=== PATIENT | female | born 1965 | race Caucasian/White ===

== ENCOUNTER → 2017-02-16 | Outpatient (CLI) | payer BC ==
[~2017-02-16] MED LIST: ANT25 PO; ATV5 SL; BCPILLS PO; ERYOPO OP; LEVO100T84 PO; MULT-506 PO
--- NOTE | 2017-02-17 12:32 | MAMMOGRAPHY REPORT ---
BILATERAL DIGITAL SCREENING MAMMOGRAM TOMOSYNTHESIS WITH CAD: 02/16/2017 CLINICAL HISTORY: Routine screening. Patient has no complaints. TECHNIQUE: Breast tomosynthesis in addition to standard 2D mammography was performed. COMPARISON: Comparison is made to exams dated: 02/14/2016 mammogram, 02/08/2014 mammogram, 02/03/2013 m ammogram, 01/27/2012 mammogram, 01/26/2011 mammogram, and 01/23/2010 mammogram - [facility]. BREAST COMPOSITION: There are scattered areas of fibroglandular density in both breasts. FINDINGS: The parenchymal pattern is unchanged. No developing mass, architectural distortion or clu ster of suspicious microcalcifications is seen in either breast. IMPRESSION: ACR BI-RADS CATEGORY 2: BENIGN There is no mammographic evidence of malignancy. A 1 year screening mammogram is recommended. The p atient will receive written notification of the results. Approximately 10% of breast cancers are not detected with mammography. A negative mammographic repor t should not delay biopsy if a clinically suggestive mass is present. Analia Morris M.D. ay/:02/16/2017 17:26:44 Suppression Crew Leader: Natasha JARAMILLO,R, M, [facility] letter sent: Normal 1/2 BI-RADS Code: ACR BI-RADS Category 2: Benign
== END | disposition home or self-care (01) ==
LOC: C.MAMM 07:47
PROVIDERS: ATTEND Obstetrics & Gynecology
DX: Z12.31 Encounter for screening mammogram for malignant neoplasm of breast (principal)

== ENCOUNTER → 2017-04-20 | Outpatient (CLI) | payer BC | END | disposition home or self-care (01) | LOC: C.PAPS 07:46 | PROVIDERS: ATTEND Obstetrics & Gynecology | DX: Z01.419 Encounter for gynecological examination (general) (routine) without abnormal findings (principal) ==

== ENCOUNTER → 2017-11-16 | Outpatient (CLI) | payer BC ==
--- NOTE | 2017-11-16 15:29 | DIAGNOSTIC IMAGING REPORT ---
ADDENDUM The corrected impression should read as follows: IMPRESSION: Essentially NORMAL sonographic examination of the abdomen. Incidental findings as above. Electronically signed by: Shekhar Butts M.D. 11/16/2017 3:34 PM Dictated Date/Time: 11/16/2017 3:33 PM ORIGINAL REPORT ABDOMEN COMPLETE (US) CLINICAL HISTORY: 51 years-old Female presenting with AB PAIN. TECHNIQUE: Real-time grayscale and limited color Doppler ultrasound imaging of the abdomen was performed. COMPARISON: None. FINDINGS: Pancreas: Visualized portions of the pancreatic head and body normal. Liver: Normal echogenicity and echotexture. The liver measures 13.5 cm in maximal sagittal dimension. Anechoic lobular 1.8 x 1.1 x 1.6 cm lesion noted in the posterior right hepatic lobe, likely hepatic cyst. Main portal vein patent with normal directional flow. Biliary: No intrahepatic biliary ductal dilatation. Common bile duct measures up to 4 mm in diameter. Gallbladder: No evidence of gallstones, gallbladder wall thickening, gallbladder distention, or pericholecystic fluid or inflammatory change. Spleen: Few hyperechogenicity is in the spleen likely parenchymal calcifications suggesting prior granulomatous infection. The spleen measures 10.8 cm in length. Kidneys: Normal in size and echogenicity. Right kidney measures 10.9 cm, and left kidney measures 10.5 x 4 cm. No hydronephrosis. Vasculature: Visualized portions of the IVC and abdominal aorta normal. Ascites: None. IMPRESSION: Essentially sonographic examination of the abdomen. Incidental findings as above. Electronically signed by: Shekhar Butts M.D. 11/16/2017 3:27 PM Dictated Date/Time: 11/16/2017 3:23 PM
--- NOTE | 2017-11-16 15:33 | DIAGNOSTIC IMAGING REPORT ---
PELVIC COMPLETE NON OB, TRANSVAG-FEMALE PELVIS CLINICAL HISTORY: 51 years-old Female presenting with right lower quadrant pain, postmenopausal for one year. TECHNIQUE: Real-time grayscale and color and spectral Doppler ultrasound imaging of the pelvis was performed first using a transabdominal probe and subsequently transvaginal for better characterization. COMPARISON: None. FINDINGS: Uterus: Uterine fibroids suspected, the largest measuring up to 1.7 cm. Anteverted. The uterus measures 7.9 x 4.3 x 5.5 cm. Endometrial stripe measures 4-5 mm in thickness. Endometrium demonstrates trace cystic change near the fundus. Cervix contains nabothian cysts with trace fluid in the endocervical canal. Right adnexa: Right ovary contains a dominant follicle. Right ovary measures 2.9 x 1.7 x 3.1 cm. Normal color Doppler flow and arterial and venous waveforms within the ovarian parenchyma. Left adnexa: Left ovary not visualized. Other: No free fluid. IMPRESSION: 1. The left ovary was not visualized. No right ovarian torsion. 2. Small fibroid suggested. 3. Cystic change associated with the endometrium can be seen in the setting of tamoxifen treatment or adenomyosis. Electronically signed by: Shekhar Butts M.D. 11/16/2017 3:31 PM Dictated Date/Time: 11/16/2017 3:27 PM
== END | disposition home or self-care (01) ==
LOC: C.ULTR 13:51
PROVIDERS: ATTEND Student in an Organized Health Care Education/Training Program
DX: R10.9 Unspecified abdominal pain (principal); N85.8 Other specified noninflammatory disorders of uterus

== ENCOUNTER → 2017-11-24 | Outpatient (CLI) | payer BC | END | disposition home or self-care (01) | LOC: C.PATHSPEC 14:00 | PROVIDERS: ATTEND Obstetrics & Gynecology | DX: N85.8 Other specified noninflammatory disorders of uterus (principal); R93.8 Abnormal findings on diagnostic imaging of other specified body structures ==

== ENCOUNTER → 2018-01-07 | Outpatient (CLI) | payer OTHER ==
[~2018-01-07] MED LIST changes: +CPR500 PO; +HYDR200T5 PO; +LEVO112T4 PO; +PRED10TA PO
--- NOTE | 2018-01-07 14:37 | DIAGNOSTIC IMAGING REPORT ---
CHEST 2 VIEWS ROUTINE HISTORY: 52 years-old Female FLU LIKE SYMPTOMS acute flu like symptoms. COMPARISON: None available TECHNIQUE: PA and lateral views of the chest FINDINGS: Cardiomediastinal and hilar silhouettes are within normal limits. There is no pneumothorax, pleural effusion, focal airspace consolidation or overt pulmonary edema. The bones of the chest appear grossly intact. IMPRESSION: No acute process. The above report was generated using voice recognition software. It may contain grammatical, syntax or spelling errors. Electronically signed by: Nicanor Berry M.D. 01/07/2018 2:36 PM Dictated Date/Time: 01/07/2018 2:35 PM
== END | disposition home or self-care (01) ==
LOC: C.RAD1850 14:25
PROVIDERS: ATTEND Family Medicine
DX: R68.89 Other general symptoms and signs (principal)

== ENCOUNTER 2018-01-08 17:48 | Inpatient (IN) | payer OTHER ==
[~2018-01-08] VITALS: Ht 165.1 cm; Wt 68.0 kg
[~2018-01-08 17:48] MED LIST changes: -CPR500 PO; -HYDR200T5 PO; -LEVO112T4 PO; -PRED10TA PO
[2018-01-08] MEDS ORDERED: ACETAMINOPHEN 500 MG TAB PO STA (18:08)
[2018-01-08] MEDS ORDERED: SODIUM CHLORIDE 0.9% 1000ML 1,000 ML IV ONE (18:08)
[2018-01-08] MEDS ORDERED: CEFEPIME IV 2,000 MG in DEXTROSE 5% 100ML 100 ML IV ONE (18:15)
[2018-01-08] MEDS ORDERED: OPTIRAY 320 IV PRN (18:15)
[2018-01-08] MEDS ORDERED: LEVO112T4 PO (18:51)
[2018-01-08] MEDS ORDERED: HYDR200T5 PO (18:51)
--- NOTE | 2018-01-08 18:54 | EMERGENCY ROOM VISIT NOTE ---
History Report prepared by Nettie: Trevin Sanchez Under the Supervision of: Dr. Boby Jones M.D. First contact with patient: 18:01 Chief Complaint: UNABLE TO VOID Stated Complaint: CONSTIPATION,NOT ABLE TO URINATE Nursing Triage Summary: pt to the ED with c/o 2 wks of flu like sickness with n/v/d but today she cannot void unless she forces it per pt and given herself hemmroids trying to void History of Present Illness The patient is a 52 year old female who presents to the Emergency Room with complaints of a constant inability to void that started yesterday. She rates her discomfort as a 6/10 in severity. The patient states that she started to experience diarrhea two weeks ago for three days. She reports that following the diarrhea, she started to experience vomiting, muscle aches, and fever. The patient states that she was checking her temperature and taking Tylenol to lower her temperature, but she reports that her fever would return. She states that she started to feel as if her symptoms were resolving a week ago, but a day later her symptoms returned. The patient reports that she went to visit her physician five days ago when he diagnosed her with influenza. She states that her physician told her to go home and push fluids, which she reports she has been doing. The patient states that her symptoms continued throughout the week. She reports that her diarrhea resolved, and she states she has not had a bowel movement in a week. She reports that her last bowel movement was normal, but states she could only defecate a small amount. The patient states that she still has been vomiting "foam like" fluids. The patient states that she has been experiencing nausea, which has been causing her not to eat frequently. She reports that she has been able to eat small foods, such as toast. The patient reports that she has also been experiencing a cough. The patient states that yesterday, she started to experience trouble voiding, which she describes as having to push in order to urinate. She states that she went to a different physician yesterday who diagnosed her with a sinus infection. The patient states that the physician gave her a Z Pack and did blood work and an xray. She reports that the results showed normal thyroid and kidney function, but showed anemia and high liver enzymes. The patient reports that her chest x-ray was normal as well. She reports that her inability to void has continued today. The patient states that she has been pushing to urinate, which has caused her to develop hemorrhoids. She states that there is no pain upon urination, but she states that there is mild discomfort and it feels as if her "bladder is unable to empty". The patient states that she has still been taking Tylenol for her fever with her last dose early this afternoon. She denies a rash, vaginal discharge, previous similar symptoms, abdominal surgeries, and a history of diverticulitis. The patient reports a history of [place], Lupus, and a thyroidectomy. She states that she is currently taking Plaquenil for her history of Lupus. Source of History: patient Onset: yesterday Position: other (global) Symptom Intensity: 05/08 Quality: other ("needing to push to urinate") Timing: constant Modifying Factors (Relieving): other (Z Pack) Associated Symptoms: + fevers, + cough, + nausea, + vomiting, + diarrhea ( resolved) Review of Systems See HPI for pertinent positives & negatives. A total of 10 systems reviewed and were otherwise negative. Past Medical & Surgical Medical Problems: (1) Lupus (2) Mononucleosis Surgical Problems: (1) History of thyroidectomy Family History Patient reports no known family medical history. Social History Marital Status: Housing Status: lives with family Occupation Status: employed Current/Historical Medications Scheduled Hydroxychloroquine Sulfate (Plaquenil), 200 MG PO BID Levothyroxine Sodium (Levothyroxine Sodium), 112 MCG PO DAILY Allergies Coded Allergies: Penicillins (Verified Allergy, Intermediate, RASH, 01/03/10) Physical Exam Vital Signs Date Time Temp Pulse Resp B/P (MAP) Pulse Ox O2 Delivery O2 Flow Rate FiO2 01/08/18 22:20 70 16 122/78 98 Room Air 01/08/18 18:32 99 Room Air 01/08/18 17:51 39.4 96 18 124/81 95 Room Air Physical Exam GENERAL: Patient is in no acute distress. HEENT: No acute trauma, normocephalic atraumatic, mucous membranes dry, no nasal congestion, no scleral icterus. NECK: No stridor, no adenopathy, no meningismus, trachea is midline. LUNGS: Clear to auscultation bilaterally, no wheeze, no rhonchi, breath sounds equal. HEART: Without murmurs gallops or rubs, regular rate and rhythm. ABDOMEN: Lower pelvis and abdomen pain bilaterally with palpation, some mild distention of the abdomen noted, bowel sounds positive, no hernias, no peritonitis. EXTREMITIES: No cyanosis or edema, full range of motion of all the joints without pain or difficulty, no signs for acute trauma. NEUROLOGIC: Oriented x 3, no acute motor or sensory deficits, no focal weakness. SKIN: No rash, no jaundice, no diaphoresis. Medical Decision & Procedures ER Provider Diagnostic Interpretation: Radiology results as stated below per my review and radiologist interpretation: CHEST 2 VIEWS ROUTINE HISTORY: 52 years-old Female FLU LIKE SYMPTOMS acute flu like symptoms. COMPARISON: None available TECHNIQUE: PA and lateral views of the chest FINDINGS: Cardiomediastinal and hilar silhouettes are within normal limits. There is no pneumothorax, pleural effusion, focal airspace consolidation or overt pulmonary edema. The bones of the chest appear grossly intact. IMPRESSION: No acute process. The above report was generated using voice recognition software. It may contain grammatical, syntax or spelling errors. Electronically signed by: Nicanor Berry M.D. 01/07/2018 2:36 PM Dictated Date/Time: 01/07/2018 2:35 PM ABD/PELVIS IV CONTRAST ONLY CLINICAL HISTORY: 52 years-old Female presenting with ABD PAIN, POSS divertic, IV CONTRAST ONLY. TECHNIQUE: Multidetector CT of the abdomen and pelvis was performed after the administration of intravenous contrast. IV contrast: 94 mL of Optiray 320. A dose lowering technique was used consistent with the principles of ALARA (as low as reasonably achievable). COMPARISON: None. CT DOSE (mGy.cm): The estimated cumulative dose is 260.69 mGy.cm. FINDINGS: [employer] Specialist topogram: Unremarkable. Lung bases: Minimal basilar opacities, likely atelectasis. Normal heart size. No pericardial or pleural effusion. Liver: Normal morphology. No liver lesion. Patent hepatic vasculature. Biliary: No intrahepatic or extrahepatic biliary ductal dilatation. Mild gallbladder wall thickening. The gallbladder is not significantly distended. No pericholecystic inflammatory change. Pancreas: Normal. Spleen: Numerous splenic parenchymal calcification suggest prior granulomatous infection. Adrenal glands: Normal. Kidneys and ureters: Normal. No hydronephrosis. Bladder: Decompressed with a Kidd catheter. Pelvic organs: Uterus and ovaries normal. Bowel: Normal. No bowel obstruction. Peritoneal cavity: No free fluid or intraperitoneal gas. Lymph nodes: No enlarged lymph nodes in the abdomen or pelvis. Vasculature: Aorta and IVC patent and normal in caliber. Abdominal wall: Normal. Musculoskeletal: Normal. IMPRESSION: 1. Gallbladder wall thickening, nonspecific. There is clinical concern for cholecystitis, ultrasound should be obtained. 2. Bladder decompressed with a Kidd catheter. Electronically signed by: Shekhar Butts M.D. 01/08/2018 7:36 PM Dictated Date/Time: 01/08/2018 7:30 PM GALLBLADDER-ABD LIMITED CLINICAL HISTORY: 52 years-old Female presenting with fever, abnormal gb on ct. TECHNIQUE: Real-time grayscale and limited color Doppler ultrasound imaging of the abdomen limited to the right upper quadrant was performed. COMPARISON: CT performed earlier the same day. FINDINGS: Pancreas: Visualized portions of the pancreatic head and body normal. Liver: Normal echogenicity and echotexture. Relative hyperechogenicity in the left hepatic lobe may indicate heterogeneous fatty deposition. The liver measures 14.2 cm in maximal sagittal dimension. No sonographic evidence of hepatic mass. Main portal vein patent with normal directional flow. Biliary: No intrahepatic biliary ductal dilatation. Common bile duct measures up to 5 mm in diameter. Gallbladder: Minimal sludge may be present. No evidence of gallstones. Mild gallbladder wall thickening, nonspecific. Sonographic Thomason's sign negative. Right kidney: Normal in appearance. No hydronephrosis. Ascites: None. IMPRESSION: Minimal gallbladder sludge. No cholelithiasis. Nonspecific mild gallbladder wall thickening. Findings are not suggestive of acute cholecystitis. If there is clinical concern for this diagnosis, nuclear medicine HIDA scan could be obtained. Electronically signed by: Shekhar Butts M.D. 01/08/2018 10:29 PM Dictated Date/Time: 01/08/2018 10:28 PM Laboratory Results 01/08/18 18:22 Red Blood Count 4.03, Mean Corpuscular Volume 84.6, Mean Corpuscular Hemoglobin 29.5, Mean Corpuscular Hemoglobin Concent 34.9, Mean Platelet Volume 10.2, Neutrophils (%) (Auto) 80.5, Lymphocytes (%) (Auto) 13.0, Monocytes (%) (Auto) 6.1, Eosinophils (%) (Auto) 0.0, Basophils (%) (Auto) 0.0, Neutrophils # (Auto) 2.23, Lymphocytes # (Auto) 0.36, Monocytes # (Auto) 0.17, Eosinophils # (Auto) 0.00, Basophils # (Auto) 0.00 01/08/18 18:22 Test 01/08/18 18:22 01/08/18 18:30 01/08/18 18:51 01/08/18 19:02 White Blood Count 2.77 K/uL (4.8-10.8) Red Blood Count 4.03 M/uL (4.2-5.4) Hemoglobin 11.9 g/dL (12.0-16.0) Hematocrit 34.1 % (37-47) Mean Corpuscular Volume 84.6 fL (80-100) Mean Corpuscular Hemoglobin 29.5 pg (25-34) Mean Corpuscular Hemoglobin Concent 34.9 g/dl (32-36) Platelet Count 138 K/uL (130-400) Mean Platelet Volume 10.2 fL (7.4-10.4) Neutrophils (%) (Auto) 80.5 % Lymphocytes (%) (Auto) 13.0 % Monocytes (%) (Auto) 6.1 % Eosinophils (%) (Auto) 0.0 % Basophils (%) (Auto) 0.0 % Neutrophils # (Auto) 2.23 K/uL (1.4-6.5) Lymphocytes # (Auto) 0.36 K/uL (1.2-3.4) Monocytes # (Auto) 0.17 K/uL (0.11-0.59) Eosinophils # (Auto) 0.00 K/uL (0-0.5) Basophils # (Auto) 0.00 K/uL (0-0.2) RDW Standard Deviation 36.0 fL (36.4-46.3) RDW Coefficient of Variation 11.6 % (11.5-14.5) Immature Granulocyte % (Auto) 0.4 % Immature Granulocyte # (Auto) 0.01 K/uL (0.00-0.02) Red Blood Cell Morphology Unremarkable Prothrombin Time 11.2 SECONDS (9.0-12.0) Prothromb Time International Ratio 1.1 (0.9-1.1) Activated Partial Thromboplast Time 28.1 SECONDS (21.0-31.0) Partial Thromboplastin Ratio 1.1 Anion Gap 8.0 mmol/L (3-11) Est Creatinine Clear Calc Drug Dose 84.4 ml/min Estimated GFR () 114.3 Estimated GFR (Non- 98.6 BUN/Creatinine Ratio 14.7 (10-20) Calcium Level 8.3 mg/dl (8.5-10.1) Magnesium Level 2.1 mg/dl (1.8-2.4) Total Bilirubin 0.5 mg/dl (0.2-1) Direct Bilirubin 0.1 mg/dl (0-0.2) Aspartate Amino Transf (AST/SGOT) 38 U/L (15-37) Alanine Aminotransferase (ALT/SGPT) 48 U/L (12-78) Alkaline Phosphatase 51 U/L (45-117) Total Creatine Kinase 57 U/L (26-192) Total Protein 7.7 gm/dl (6.4-8.2) Albumin 3.4 gm/dl (3.4-5.0) Monoscreen NEG (NEG) Influenza Type A (RT-PCR) Neg for Influ A (NEG) Influenza Type B (RT-PCR) Neg for Influ B (NEG) Bedside Lactic Acid Venous 0.78 mmol/L (0.90-1.70) Urine Color YELLOW Urine Appearance CLEAR (CLEAR) Urine pH 6.0 (4.5-7.5) Urine Specific Emmett 1.014 (1.000-1.030) Urine Protein NEG (NEG) Urine Glucose (UA) NEG (NEG) Urine Ketones NEG (NEG) Urine Occult Blood NEG (NEG) Urine Nitrite NEG (NEG) Urine Bilirubin NEG (NEG) Urine Urobilinogen NEG (NEG) Urine Leukocyte Esterase NEG (NEG) Urine WBC (Auto) 1-5 /hpf (0-5) Urine RBC (Auto) 0-4 /hpf (0-4) Urine Hyaline Casts (Auto) 1-5 /lpf (0-5) Urine Epithelial Cells (Auto) 5-10 /lpf (0-5) Urine Bacteria (Auto) NEG (NEG) Laboratory results reviewed by me. Medications Administered Medications (Trade) Dose Ordered Sig/Roland Route Start Time Stop Time Status Last Admin Dose Admin Sodium Chloride 1,000 ml @ 999 mls/hr Q1H1M ONCE IV 01/08/18 18:08 01/08/18 19:08 DC 01/08/18 18:23 999 MLS/HR Cefepime HCl 2000 mg/Dextrose 112.5 ml @ 225 mls/hr NOW ONCE IV 01/08/18 18:15 01/08/18 18:44 DC 01/08/18 18:23 225 MLS/HR Acetaminophen (Tylenol Tab) 1,000 mg NOW STAT PO 01/08/18 18:08 01/08/18 18:13 DC 01/08/18 18:23 1,000 MG Sodium Chloride 500 ml @ 999 mls/hr Q31M STAT IV 01/08/18 21:03 01/08/18 21:33 DC 01/08/18 21:03 999 MLS/HR ED Course 1805: The patient was evaluated in room C02B. A complete history and physical exam was performed. 1807: Ordered Tylenol Tab 1000 mg PO, Sodium Chloride 1000 ml @ 999 mls/hr IV. 1814: Ordered Cefepime HCl 2000 mg /Dextrose 112.5 ml @ 225 mls/hr. 1947: I reevaluated the patient and updated her on her results. I informed her of having an ultrasound done. 2102: Ordered Sodium Chloride 500 ml @ 999 mls/hr IV. 2235: I reevaluated the patient and updated her on her results. I discussed the treatment plan, which she understands and agrees to. The patient will be further evaluated. 7: I discussed the case with Dr. Haney, [facility] Hospitalist. He understands the patients condition and agrees to accept the patient. The patient will be further evaluated. Medical Decision The patient is a 52 year old female who presents to the Emergency Room with complaints of a constant inability to void that started yesterday. Differential diagnoses considered include urinary retention, UTI ,diverticulitis , colitis, abscess, dehydration, viral illness, urinary obstruction, [place], influenza. There is no leukocytosis, in fact the white count is somewhat low. No concerning anemia, no thrombocytopenia. Renal panel testing shows a low sodium , likely consistent with dehydration. No kidney failure. Lactic acid level is not elevated making sepsis less likely. There was a very mild elevation to the AST, no bilirubin elevation. The total CK was not elevated. Urinalysis does not show infection. Blood cultures are pending. [place] and influenza testing was negative. Abdominal and pelvis CT does not show diverticulitis or bowel obstruction. The gallbladder was thickened. Gallbladder ultrasound shows sludge and gallbladder wall thickening, no gallstones. Chest film from yesterday did not show any evidence for pneumonia or pneumothorax. The patient received IV hydration with saline. She was given oral Tylenol. She received IV cefepime as antibiotic coverage. A Kidd catheter was placed and drained around 1000 cc of urine, she felt markedly better after the Kidd was placed. The patient has been sick for 2 weeks. She is now retaining urine, the cause for this is unclear. She has a thickened gallbladder wall and certainly, acute cholecystitis is a concern especially with her high fever. I do think a hospital stay for further care and workup is warranted. I spoke with the patient and case management. The on-call hospitalist was consulted. Medication Reconcilliation Current Medication List: was personally reviewed by me Blood Pressure Screening Patient's blood pressure: Normal blood pressure Consults Time Called: [id number] Consulting Physician: Dr. Haney [facility] Hospitalist Returned Call: [phone] I discussed the case with Dr. Haney [facility] Hospitalist. He understands the patients condition and agrees to accept the patient. The patient will be further evaluated. Impression Primary Impression: Fever Additional Impressions: Acute cholecystitis Dehydration Urinary retention Scribe Attestation The scribe's documentation has been prepared under my direction and personally reviewed by me in its entirety. I confirm that the note above accurately reflects all work, treatment, procedures, and medical decision making performed by me. Departure Information Dispostion Being Evaluated By Hospitalist Referrals Ashanti Graham D.O. (PCP) Patient Instructions [facility] Problem Qualifiers
[2018-01-08 18:55] LABS: HEMATOCRIT 34.1 % (37-47); HEMOGLOBIN 11.9 g/dL (12.0-16.0); MEAN CELL VOLUME 84.6 fL (80-100); MEAN CORPUSCULAR HEMOGLOBIN 29.5 pg (25-34); MEAN CORPUSCULAR HGB CONC 34.9 g/dl (32-36); MEAN PLATELET VOLUME 10.2 fL (7.4-10.4); PLATELET COUNT 138 K/uL (130-400); RED CELL DISTRIBUTION WIDTH CV 11.6 % (11.5-14.5); WHITE BLOOD COUNT 2.77 K/uL (4.8-10.8)
[2018-01-08 19:11] LABS: ALBUMIN 3.4 gm/dl (3.4-5.0); CALCIUM 8.3 mg/dl (8.5-10.1); CREATININE 0.71 mg/dl (0.60-1.20); POTASSIUM 3.7 mmol/L (3.5-5.1)
[2018-01-08 19:14] LABS: IG# 0.01 K/uL (0.00-0.02); INR 1.1 (0.9-1.1); LYMPH ABS # 0.36 K/uL (1.2-3.4); MONO % 6.1 %; MONO ABS # 0.17 K/uL (0.11-0.59); NEUT % 80.5 %; NEUT ABS # 2.23 K/uL (1.4-6.5); PTT PATIENT 28.1 SECONDS (21.0-31.0); TOTAL PROTEIN 7.7 gm/dl (6.4-8.2)
[2018-01-08 19:32] LABS: INFLUENZA A PCR Neg for Influ A (NEG); INFLUENZA B PCR Neg for Influ B (NEG)
--- NOTE | 2018-01-08 19:37 | DIAGNOSTIC IMAGING REPORT ---
ABD/PELVIS IV CONTRAST ONLY CLINICAL HISTORY: 52 years-old Female presenting with ABD PAIN, POSS divertic, IV CONTRAST ONLY. TECHNIQUE: Multidetector CT of the abdomen and pelvis was performed after the administration of intravenous contrast. IV contrast: 94 mL of Optiray 320. A dose lowering technique was used consistent with the principles of ALARA (as low as reasonably achievable). COMPARISON: None. CT DOSE (mGy.cm): The estimated cumulative dose is 260.69 mGy.cm. FINDINGS: D[employer]er topogram: Unremarkable. Lung bases: Minimal basilar opacities, likely atelectasis. Normal heart size. No pericardial or pleural effusion. Liver: Normal morphology. No liver lesion. Patent hepatic vasculature. Biliary: No intrahepatic or extrahepatic biliary ductal dilatation. Mild gallbladder wall thickening. The gallbladder is not significantly distended. No pericholecystic inflammatory change. Pancreas: Normal. Spleen: Numerous splenic parenchymal calcification suggest prior granulomatous infection. Adrenal glands: Normal. Kidneys and ureters: Normal. No hydronephrosis. Bladder: Decompressed with a Kidd catheter. Pelvic organs: Uterus and ovaries normal. Bowel: Normal. No bowel obstruction. Peritoneal cavity: No free fluid or intraperitoneal gas. Lymph nodes: No enlarged lymph nodes in the abdomen or pelvis. Vasculature: Aorta and IVC patent and normal in caliber. Abdominal wall: Normal. Musculoskeletal: Normal. IMPRESSION: 1. Gallbladder wall thickening, nonspecific. There is clinical concern for cholecystitis, ultrasound should be obtained. 2. Bladder decompressed with a Kidd catheter. Electronically signed by: Shekhar Butts M.D. 01/08/2018 7:36 PM Dictated Date/Time: 01/08/2018 7:30 PM
[2018-01-08] MEDS ORDERED: SODIUM CHLORIDE 0.9% 500ML 500 ML IV STA (21:03)
--- NOTE | 2018-01-08 22:30 | DIAGNOSTIC IMAGING REPORT ---
GALLBLADDER-ABD LIMITED CLINICAL HISTORY: 52 years-old Female presenting with fever, abnormal gb on ct. TECHNIQUE: Real-time grayscale and limited color Doppler ultrasound imaging of the abdomen limited to the right upper quadrant was performed. COMPARISON: CT performed earlier the same day. FINDINGS: Pancreas: Visualized portions of the pancreatic head and body normal. Liver: Normal echogenicity and echotexture. Relative hyperechogenicity in the left hepatic lobe may indicate heterogeneous fatty deposition. The liver measures 14.2 cm in maximal sagittal dimension. No sonographic evidence of hepatic mass. Main portal vein patent with normal directional flow. Biliary: No intrahepatic biliary ductal dilatation. Common bile duct measures up to 5 mm in diameter. Gallbladder: Minimal sludge may be present. No evidence of gallstones. Mild gallbladder wall thickening, nonspecific. Sonographic Thomason's sign negative. Right kidney: Normal in appearance. No hydronephrosis. Ascites: None. IMPRESSION: Minimal gallbladder sludge. No cholelithiasis. Nonspecific mild gallbladder wall thickening. Findings are not suggestive of acute cholecystitis. If there is clinical concern for this diagnosis, nuclear medicine HIDA scan could be obtained. Electronically signed by: Shekhar Butts M.D. 01/08/2018 10:29 PM Dictated Date/Time: 01/08/2018 10:28 PM
[2018-01-09] MEDS ORDERED: MAGNESIUM HYDROXIDE SUSP 30 ML UDC PO PRN (01:15)
[2018-01-09] MEDS ORDERED: ALUMINUM/MAGNESIUM/SIMETH (MAALOX MAX) 30 ML UDC PO PRN (01:15)
[2018-01-09] MEDS ORDERED: POLYETHYLENE (MIRALAX) 17 GM PACK PO PRN (01:15)
[2018-01-09] MEDS ORDERED: ONDANSETRON INJ 2 MG/ML 2 ML VIAL IV PRN (01:15)
[2018-01-09] MEDS ORDERED: MoRPHine SULFATE 2 MG/ML CARP IV PRN (01:15)
--- NOTE | 2018-01-09 01:32 | History and Physical ---
History & Physical Date & Time of Service: Jan 09, 2018 at 01:13 Chief Complaint: Constipation,Not Able To Urinate Primary Care Physician: Ashanti Graham D.O. History of Present Illness Source: patient, hospital records Patient is a 52 year old female with a PMH of lupus and hypothyroidism who presented to the ED as she has been unable to urinate. Her difficulty with urination started yesterday where she said she had to bare down very hard to urinate that she even gave herself a haemmorhoid. Today she was unable to urinate at all and therefore she came to the ED. She says she feels that there is something blocking her urethra. She has never had this happen to her before. She denies any dysuria, hematuria, or new medications. She denies any vaginal bleeding. She also notes that for the past two weeks she has had fevers, vomiting and chills with a decreased appetite. She has measured her temperature at home and it has been 100-102 and she has taken tylenol to subside this. She did have diarrhea 10 days ago but this has now subsided. She denies any abdominal pain, dysuria,. Past Medical/Surgical History Surgical Problems: (1) History of thyroidectomy Status: Resolved Family History Patient reports no known family medical history. Social History Smoking Status: Never Smoker Alcohol Use: none Drug Use: none Marital Status: Housing status: lives with family Occupational Status: employed Immunizations History of Influenza Vaccine: Yes Influenza Vaccine Date: Oct 15, 2005 History of Tetanus Vaccine?: unsure of date History of Pneumococcal: No History of Hepatitis B Vaccine: No Multi-Drug Resistant Organisms History of MDRO: No Allergies Coded Allergies: Penicillins (Verified Allergy, Intermediate, RASH, 01/03/10) Home Medications Scheduled Hydroxychloroquine Sulfate (Plaquenil), 200 MG PO BID Levothyroxine Sodium (Levothyroxine Sodium), 112 MCG PO DAILY Review of Systems Constitutional: + fever, + chills Respiratory: No cough, No sputum, No shortness of breath, No hemoptysis Cardiovascular: No chest pain, No edema, No palpitations Abdomen: + nausea, + vomiting, + diarrhea, + constipation, No pain, No GI bleeding Genitourinary - Female: No dysuria, No urinary frequency, No urinary retention , No hematuria, No vaginal discharge, No vaginal itching Neurologic: No memory loss, No numbness/tingling Endocrine: + fatigue Hematologic / Lymphatic: No abnormal bleeding/bruising Integumentary: No rash, No itch, No new/changing skin lesions Physical Exam Vital Signs Date Time Temp Pulse Resp B/P (MAP) Pulse Ox O2 Delivery O2 Flow Rate FiO2 01/09/18 00:20 60 16 123/76 99 Room Air 01/08/18 22:20 70 16 122/78 98 Room Air 01/08/18 18:32 99 Room Air 01/08/18 17:51 39.4 96 18 124/81 95 Room Air General Appearance: WD/WN, no apparent distress Head: normocephalic, atraumatic ENT: hearing grossly normal, pharynx normal Neck: supple, no JVD, trachea midline Respiratory/Chest: lungs clear, no respiratory distress, no accessory muscle use Cardiovascular: regular rate, rhythm, no murmur, normal peripheral pulses Abdomen/GI: normal bowel sounds, non tender, soft Back: normal inspection, no CVA tenderness, normal range of motion Extremities/Musculoskelatal: no calf tenderness, no pedal edema, non-tender Neurologic/Psych: alert, normal mood/affect, oriented x 3 Skin: normal color, warm/dry, no rash Diagnostics Laboratory Results Results Past 24 Hours Test 01/08/18 18:22 01/08/18 18:30 01/08/18 18:51 01/08/18 19:02 Range/Units White Blood Count 2.77 4.8-10.8 K/uL Red Blood Count 4.03 4.2-5.4 M/uL Hemoglobin 11.9 12.0-16.0 g/dL Hematocrit 34.1 37-47 % Mean Corpuscular Volume 84.6 80-100 fL Mean Corpuscular Hemoglobin 29.5 25-34 pg Mean Corpuscular Hemoglobin Concent 34.9 32-36 g/dl Platelet Count 138 130-400 K/uL Mean Platelet Volume 10.2 7.4-10.4 fL Neutrophils (%) (Auto) 80.5 % Lymphocytes (%) (Auto) 13.0 % Monocytes (%) (Auto) 6.1 % Eosinophils (%) (Auto) 0.0 % Basophils (%) (Auto) 0.0 % Neutrophils # (Auto) 2.23 1.4-6.5 K/uL Lymphocytes # (Auto) 0.36 1.2-3.4 K/uL Monocytes # (Auto) 0.17 0.11-0.59 K/uL Eosinophils # (Auto) 0.00 0-0.5 K/uL Basophils # (Auto) 0.00 0-0.2 K/uL RDW Standard Deviation 36.0 36.4-46.3 fL RDW Coefficient of Variation 11.6 11.5-14.5 % Immature Granulocyte % (Auto) 0.4 % Immature Granulocyte # (Auto) 0.01 0.00-0.02 K/uL Red Blood Cell Morphology Unremarkable Prothrombin Time 11.2 9.0-12.0 SECONDS Prothromb Time International Ratio 1.1 0.9-1.1 Activated Partial Thromboplast Time 28.1 21.0-31.0 SECONDS Partial Thromboplastin Ratio 1.1 Sodium Level 129 136-145 mmol/L Potassium Level 3.7 3.5-5.1 mmol/L Chloride Level 97 98-107 mmol/L Carbon Dioxide Level 24 21-32 mmol/L Anion Gap 8.0 3-11 mmol/L Blood Urea Nitrogen 11 7-18 mg/dl Creatinine 0.71 0.60-1.20 mg/dl Est Creatinine Clear Calc Drug Dose 84.4 ml/min Estimated GFR () 114.3 Estimated GFR (Non- 98.6 BUN/Creatinine Ratio 14.7 10-20 Random Glucose 93 70-99 mg/dl Calcium Level 8.3 8.5-10.1 mg/dl Magnesium Level 2.1 1.8-2.4 mg/dl Total Bilirubin 0.5 0.2-1 mg/dl Direct Bilirubin 0.1 0-0.2 mg/dl Aspartate Amino Transf (AST/SGOT) 38 15-37 U/L Alanine Aminotransferase (ALT/SGPT) 48 12-78 U/L Alkaline Phosphatase 51 45-117 U/L Total Creatine Kinase 57 26-192 U/L Total Protein 7.7 6.4-8.2 gm/dl Albumin 3.4 3.4-5.0 gm/dl Monoscreen NEG NEG Influenza Type A (RT-PCR) Neg for Influ A NEG Influenza Type B (RT-PCR) Neg for Influ B NEG Bedside Lactic Acid Venous 0.78 0.90-1.70 mmol/L Urine Color YELLOW Urine Appearance CLEAR CLEAR Urine pH 6.0 4.5-7.5 Urine Specific [place] 1.014 1.000-1.030 Urine Protein NEG NEG Urine Glucose (UA) NEG NEG Urine Ketones NEG NEG Urine Occult Blood NEG NEG Urine Nitrite NEG NEG Urine Bilirubin NEG NEG Urine Urobilinogen NEG NEG Urine Leukocyte Esterase NEG NEG Urine WBC (Auto) 1-5 0-5 /hpf Urine RBC (Auto) 0-4 0-4 /hpf Urine Hyaline Casts (Auto) 1-5 0-5 /lpf Urine Epithelial Cells (Auto) 5-10 0-5 /lpf Urine Bacteria (Auto) NEG NEG Microbiology Results 01/08/18 Blood Culture, Received Pending 01/08/18 Blood Culture, Received Pending Diagnostic Radiology Gallbladder US Minimal gallbladder sludge. No cholelithiasis. Nonspecific mild gallbladder wall thickening. Findings are not suggestive of acute cholecystitis. If there is clinical concern for this diagnosis, nuclear medicine HIDA scan could be obtained. Abdomen CT 1. Gallbladder wall thickening, nonspecific. There is clinical concern for cholecystitis, ultrasound should be obtained. 2. Bladder decompressed with a Kidd catheter. Impression Assessment and Plan 52 year old female with a PMH of lupus and hypothyroidism presented to [facility] with difficulty urinating and fevers/chills and vomiting Difficulty urination - Kidd placed - bladder scan ordered - no urinary symptoms - no offending medications - possibly secondary to dehydration therefore voiding trial in the AM and if still unable to urinate the should consider urology consult Abnormal gallbladder on imaging - Fevers, chills, vomiting and decrease appetite over the past 2 weeks - IVF with 125mls NS - Ceftriaxone 2gram q24 - Consult general surgery - HIDA w/ EF - NPO except meds Hx of lupus - continue hydroxychloroquine Hx of hypothyroidism secondary to thyroidectomy - continue levo DVT prophylaxis - chemical prophylaxis held as may need surgery - SCD FULL CODE Attending addendum: I have physically seen this patient, have supervised the medical residents activities, and agree with the H&P unless as otherwise noted. Assessment and Plan: Urinary retention-- When Kidd was placed in the ED, there was 1000 cc of urine. We will discontinue Kidd upon admission and order bladder scans with as needed straight cathing. Follow urine culture and sensitivity. No obvious explanation at this time. Although may be secondary to concurrent GI problem. Abnormal gallbladder imaging/diarrhea/fevers, chills and vomiting-- N.p.o. except essential medications HIDA scan with gallbladder ejection fraction Empiric ceftriaxone IV IV fluids Lupus-- Continue hydroxychloroquine Level of Care Med/Surg Advanced Directives Existing Advance Directive: No Existing Living Will: No Existing Power of Vp Cardiovascular: No Resuscitation Status FULL RESUSCITATION VTE Prophylaxis VTE Risk Assessment Done? Y/N: Yes Risk Level: Moderate Given or contraindicated: SCD's Social Service Consult None Apply
[2018-01-09 02:05] VITALS: BP 145/86; PULSE 68; TEMP 37.1; O2SAT 98; Ht 165.1 cm; Wt 68.0 kg
[2018-01-09] MEDS ORDERED: IV FLUIDS COMPLETED PRN (02:30)
[2018-01-09] MEDS: SODIUM CHLORIDE 0.9% 1000ML 1,000 ML IV SCH ×3 (02:56→20:30)
[2018-01-09] MEDS: CEFTRIAXONE SOD INJ 2,000 MG in DEXTROSE 5% 50ML 50 ML IV SCH (02:57)
[2018-01-09] MEDS: LEVOTHYROXINE 112 MCG TAB PO SCH (05:45)
[2018-01-09 07:38] VITALS: BP 145/78; PULSE 78; TEMP 37.6; O2SAT 98
[2018-01-09 07:45] VITALS: O2SAT 98
[2018-01-09 08:49] LABS: HEMATOCRIT 31.9 % (37-47); HEMOGLOBIN 10.9 g/dL (12.0-16.0); LYMPH % 22.6 %; LYMPH ABS # 0.38 K/uL (1.2-3.4); MEAN CELL VOLUME 85.3 fL (80-100); MEAN CORPUSCULAR HEMOGLOBIN 29.1 pg (25-34); MEAN CORPUSCULAR HGB CONC 34.2 g/dl (32-36); MEAN PLATELET VOLUME 9.8 fL (7.4-10.4); MONO % 8.3 %; MONO ABS # 0.14 K/uL (0.11-0.59); NEUT % 69.1 %; NEUT ABS # 1.16 K/uL (1.4-6.5); PLATELET COUNT 122 K/uL (130-400); RED CELL DISTRIBUTION WIDTH CV 11.8 % (11.5-14.5); RED CELL DISTRIBUTION WIDTH SD 37.1 fL (36.4-46.3); WHITE BLOOD COUNT 1.68 K/uL (4.8-10.8)
[2018-01-09] MEDS: HYDROXYCHLOROQUINE SULFATE 200 MG TAB PO SCH ×2 (09:16→20:30)
[2018-01-09 09:18] VITALS: TEMP 37.8
[2018-01-09 09:21] LABS: ALBUMIN 2.9 gm/dl (3.4-5.0); CALCIUM 7.8 mg/dl (8.5-10.1); CREATININE 0.56 mg/dl (0.60-1.20); POTASSIUM 3.7 mmol/L (3.5-5.1)
[2018-01-09 09:22] LABS: TOTAL PROTEIN 6.5 gm/dl (6.4-8.2)
[2018-01-09] MEDS: ACETAMINOPHEN 325 MG TAB PO PRN ×2 (09:24→23:45)
--- NOTE | 2018-01-09 09:47 | Pre-Operative Consultation ---
History General Date of Service: Jan 09, 2018. HPI HPI: The patient is a 52 year old female being seen for gallbladder sludge and mildly thickened wall. She was admitted with complaints of a constant inability to void that started yesterday. The patient states that she started to experience diarrhea two weeks ago for three days. She reports that following the diarrhea, she started to experience vomiting, muscle aches, and fever. She went to visit her physician five days ago when he diagnosed her with influenza. She has in the past had some intermittent nausea and bloating from some food intolerances but none currently. She denies upper abdominal pain. Historian: patient Procedure Urgency: Acute Risk Assessment Daily beta bear use?: No Problem List Medical Problems: (1) Acute cholecystitis Status: Acute (2) Dehydration Status: Acute (3) Fever Status: Acute (4) Urinary retention Status: Acute Medical & Surgical History Past Medical History: other (lupus) Past Surgical History: thyroidectomy Family History Family History: no pertinent family hx Social History Smoking Status: Never Smoker Drug Use: none Marital status: Housing status: lives with family Occupation status: employed Immunizations Have You Had Influenza Vaccine: Yes Date Of Influenza Vaccine: Oct 15, 2005 Have You Had Tetanus Vaccine: unsure of date History of Pneumococcal: No History Hepatitis B Vaccine: No Allergies Allergies: Coded Allergies: Penicillins (Verified Allergy, Intermediate, RASH, 01/03/10) Medications Current Inpatient Medications Current Inpatient Medications Medications (Trade) Dose Ordered Sig/Roland Route Start Time Stop Time Status Last Admin Dose Admin Ioversol (Optiray 320) 100 ml UD PRN IV 01/08/18 18:15 01/12/18 18:14 Acetaminophen (Tylenol Tab) 650 mg Q4H PRN PO 01/09/18 01:15 02/08/18 01:14 01/09/18 09:24 650 MG Al Hydrox/Mg Hydrox/Simethicone (Maalox Max Susp) 15 ml Q4H PRN PO 01/09/18 01:15 02/08/18 01:14 Magnesium Hydroxide (Milk Of Magnesia Susp) 30 ml Q6H PRN PO 01/09/18 01:15 02/08/18 01:14 Polyethylene (Miralax Powder Packet) 17 gm DAILY PRN PO 01/09/18 01:15 02/08/18 01:14 Ondansetron HCl (Zofran Inj) 4 mg Q6H PRN IV 01/09/18 01:15 02/08/18 01:14 Sodium Chloride 1,000 ml @ 125 mls/hr Q8H IV 01/09/18 03:00 02/08/18 02:59 01/09/18 02:56 125 MLS/HR Ceftriaxone Sodium 2000 mg/ Dextrose 70 ml @ 100 mls/hr Q24H IV 01/09/18 04:00 01/19/18 03:59 01/09/18 02:57 100 MLS/HR Morphine Sulfate (MoRPHine SULFATE INJ) 1 mg Q2HWA PRN IV 01/09/18 01:15 01/23/18 01:14 Hydroxychloroquine Sulfate (Plaquenil Tab) 200 mg BID PO 01/09/18 09:00 02/08/18 08:59 01/09/18 09:16 200 MG Levothyroxine Sodium (Synthroid Tab) 112 mcg DAILYBB PO 01/09/18 06:00 02/08/18 05:59 01/09/18 05:45 112 MCG Miscellaneous (Iv Fluids Completed) 1 ea PRN PRN N/A 01/09/18 02:30 01/09/19 02:29 Review of Systems Review of Systems Constitutional: denies chills, denies diaphoresis, fever, malaise, weakness Eyes: reports: no symptoms ENT: reports: no symptoms reported Cardiovascular: denies: chest pain, chest tightness, chest pressure Respiratory: denies: cough, short of breath, stridor Gastrointestinal: denies abdominal pain, denies constipation, diarrhea, nausea , denies vomiting Genitourinary - Female: reports: other (urinary retention) Musculoskeletal: denies back pain, denies joint pain, denies joint swelling, denies muscle stiffness, denies neck pain Integumentary: denies change in hair/nails, denies dryness, denies lumps, denies rash Neurologic: reports: no symptoms Psychiatric: reports: no symptoms Endocrine: no symptoms Hematologic / Lymphatic: no symptoms Allergic / Immunologic: no symptoms Physical Exam Physical Exam General Appearance: + WD/WN, No distress Ears, Nose, Throat: + normal ENT inspection Neck: No abnormal inspection, No tracheal deviation, No lymphadenophy, No stiffness, No tenderness Respiratory: No chest tenderness, No decreased breath sounds, No rhonchi, No stridor, No wheezing Cardiovascular: No tachycardia, No gallop/S3, No diastolic murmur, No gallop/S4 , No bradycardia, No systolic murmur Abdomen: No abnormal bowel sounds, No rebound, No tenderness, No distension, No hernia, No organomegaly, No guarding Extremities: No deformity, No swelling, No calf tenderness, No inflammation Neurologic/Psychiatric: No motor deficit/weakness, No disorientation, No sensory deficit Skin Characteristics: No diaphoresis, No pallor, No jaundice, No rash Lymphatic: No abnormal adenopathy Diagnostics Labs Labs Results Past 24 Hours Test 01/08/18 18:22 01/08/18 18:30 01/08/18 18:51 01/08/18 19:02 Range/Units White Blood Count 2.77 4.8-10.8 K/uL Red Blood Count 4.03 4.2-5.4 M/uL Hemoglobin 11.9 12.0-16.0 g/dL Hematocrit 34.1 37-47 % Mean Corpuscular Volume 84.6 80-100 fL Mean Corpuscular Hemoglobin 29.5 25-34 pg Mean Corpuscular Hemoglobin Concent 34.9 32-36 g/dl Platelet Count 138 130-400 K/uL Mean Platelet Volume 10.2 7.4-10.4 fL Neutrophils (%) (Auto) 80.5 % Lymphocytes (%) (Auto) 13.0 % Monocytes (%) (Auto) 6.1 % Eosinophils (%) (Auto) 0.0 % Basophils (%) (Auto) 0.0 % Neutrophils # (Auto) 2.23 1.4-6.5 K/uL Lymphocytes # (Auto) 0.36 1.2-3.4 K/uL Monocytes # (Auto) 0.17 0.11-0.59 K/uL Eosinophils # (Auto) 0.00 0-0.5 K/uL Basophils # (Auto) 0.00 0-0.2 K/uL RDW Standard Deviation 36.0 36.4-46.3 fL RDW Coefficient of Variation 11.6 11.5-14.5 % Immature Granulocyte % (Auto) 0.4 % Immature Granulocyte # (Auto) 0.01 0.00-0.02 K/uL Red Blood Cell Morphology Unremarkable Prothrombin Time 11.2 9.0-12.0 SECONDS Prothromb Time International Ratio 1.1 0.9-1.1 Activated Partial Thromboplast Time 28.1 21.0-31.0 SECONDS Partial Thromboplastin Ratio 1.1 Sodium Level 129 136-145 mmol/L Potassium Level 3.7 3.5-5.1 mmol/L Chloride Level 97 98-107 mmol/L Carbon Dioxide Level 24 21-32 mmol/L Anion Gap 8.0 3-11 mmol/L Blood Urea Nitrogen 11 7-18 mg/dl Creatinine 0.71 0.60-1.20 mg/dl Est Creatinine Clear Calc Drug Dose 84.4 ml/min Estimated GFR () 114.3 Estimated GFR (Non- 98.6 BUN/Creatinine Ratio 14.7 10-20 Random Glucose 93 70-99 mg/dl Calcium Level 8.3 8.5-10.1 mg/dl Magnesium Level 2.1 1.8-2.4 mg/dl Total Bilirubin 0.5 0.2-1 mg/dl Direct Bilirubin 0.1 0-0.2 mg/dl Aspartate Amino Transf (AST/SGOT) 38 15-37 U/L Alanine Aminotransferase (ALT/SGPT) 48 12-78 U/L Alkaline Phosphatase 51 45-117 U/L Total Creatine Kinase 57 26-192 U/L Total Protein 7.7 6.4-8.2 gm/dl Albumin 3.4 3.4-5.0 gm/dl Monoscreen NEG NEG Influenza Type A (RT-PCR) Neg for Influ A NEG Influenza Type B (RT-PCR) Neg for Influ B NEG Bedside Lactic Acid Venous 0.78 0.90-1.70 mmol/L Urine Color YELLOW Urine Appearance CLEAR CLEAR Urine pH 6.0 4.5-7.5 Urine Specific [place] 1.014 1.000-1.030 Urine Protein NEG NEG Urine Glucose (UA) NEG NEG Urine Ketones NEG NEG Urine Occult Blood NEG NEG Urine Nitrite NEG NEG Urine Bilirubin NEG NEG Urine Urobilinogen NEG NEG Urine Leukocyte Esterase NEG NEG Urine WBC (Auto) 1-5 0-5 /hpf Urine RBC (Auto) 0-4 0-4 /hpf Urine Hyaline Casts (Auto) 1-5 0-5 /lpf Urine Epithelial Cells (Auto) 5-10 0-5 /lpf Urine Bacteria (Auto) NEG NEG Test 01/09/18 08:26 Range/Units White Blood Count 1.68 4.8-10.8 K/uL Red Blood Count 3.74 4.2-5.4 M/uL Hemoglobin 10.9 12.0-16.0 g/dL Hematocrit 31.9 37-47 % Mean Corpuscular Volume 85.3 80-100 fL Mean Corpuscular Hemoglobin 29.1 25-34 pg Mean Corpuscular Hemoglobin Concent 34.2 32-36 g/dl Platelet Count 122 130-400 K/uL Mean Platelet Volume 9.8 7.4-10.4 fL Neutrophils (%) (Auto) 69.1 % Lymphocytes (%) (Auto) 22.6 % Monocytes (%) (Auto) 8.3 % Eosinophils (%) (Auto) 0.0 % Basophils (%) (Auto) 0.0 % Neutrophils # (Auto) 1.16 1.4-6.5 K/uL Lymphocytes # (Auto) 0.38 1.2-3.4 K/uL Monocytes # (Auto) 0.14 0.11-0.59 K/uL Eosinophils # (Auto) 0.00 0-0.5 K/uL Basophils # (Auto) 0.00 0-0.2 K/uL RDW Standard Deviation 37.1 36.4-46.3 fL RDW Coefficient of Variation 11.8 11.5-14.5 % Immature Granulocyte % (Auto) 0.0 % Immature Granulocyte # (Auto) 0.00 0.00-0.02 K/uL Erythrocyte Sedimentation Rate 20 0-21 mm/hr Sodium Level 136 136-145 mmol/L Potassium Level 3.7 3.5-5.1 mmol/L Chloride Level 103 98-107 mmol/L Carbon Dioxide Level 22 21-32 mmol/L Anion Gap 11.0 3-11 mmol/L Blood Urea Nitrogen 10 7-18 mg/dl Creatinine 0.56 0.60-1.20 mg/dl Est Creatinine Clear Calc Drug Dose 106.9 ml/min Estimated GFR () 125.1 Estimated GFR (Non- 108.0 BUN/Creatinine Ratio 16.9 10-20 Random Glucose 76 70-99 mg/dl Calcium Level 7.8 8.5-10.1 mg/dl Magnesium Level 2.2 1.8-2.4 mg/dl Total Bilirubin 0.3 0.2-1 mg/dl Aspartate Amino Transf (AST/SGOT) 33 15-37 U/L Alanine Aminotransferase (ALT/SGPT) 42 12-78 U/L Alkaline Phosphatase 43 45-117 U/L C-Reactive Protein 0.55 0-0.29 mg/dl Total Protein 6.5 6.4-8.2 gm/dl Albumin 2.9 3.4-5.0 gm/dl Globulin 3.6 2.5-4.0 gm/dl Albumin/Globulin Ratio 0.8 0.9-2 Microbiology Results 01/08/18 Blood Culture, Received Pending 01/08/18 Blood Culture, Received Pending Diagnostic Radiology Diagnostic Radiology GALLBLADDER-ABD LIMITED CLINICAL HISTORY: 52 years-old Female presenting with fever, abnormal gb on ct. TECHNIQUE: Real-time grayscale and limited color Doppler ultrasound imaging of the abdomen limited to the right upper quadrant was performed. COMPARISON: CT performed earlier the same day. FINDINGS: Pancreas: Visualized portions of the pancreatic head and body normal. Liver: Normal echogenicity and echotexture. Relative hyperechogenicity in the left hepatic lobe may indicate heterogeneous fatty deposition. The liver measures 14.2 cm in maximal sagittal dimension. No sonographic evidence of hepatic mass. Main portal vein patent with normal directional flow. Biliary: No intrahepatic biliary ductal dilatation. Common bile duct measures up to 5 mm in diameter. Gallbladder: Minimal sludge may be present. No evidence of gallstones. Mild gallbladder wall thickening, nonspecific. Sonographic Thomason's sign negative. Right kidney: Normal in appearance. No hydronephrosis. Ascites: None. IMPRESSION: Minimal gallbladder sludge. No cholelithiasis. Nonspecific mild gallbladder wall thickening. Findings are not suggestive of acute cholecystitis. If there is clinical concern for this diagnosis, nuclear medicine HIDA scan could be obtained. Impression Assessment and Plan Assessment and Plan No signs/symptoms of acute cholecystitis -no need for HIDA -will see as outpatient -may have chronic malfunction of GB -will see in clinic in 2 weeks -discharge per primary team
[2018-01-09 15:18] VITALS: BP 121/74; PULSE 69; TEMP 37.1; O2SAT 99
[2018-01-09] MEDS ORDERED: GADAVIST IV PRN (17:30)
--- NOTE | 2018-01-09 17:51 | DIAGNOSTIC IMAGING REPORT ---
LUMBAR SPINE COMBINATION HISTORY: Pain urinary retention, lupus, eval for any cord lesion TECHNIQUE: Multiplanar multisequence MRI of the lumbar spine was performed both before and after the intravenous administration of contrast. COMPARISON: None. FINDINGS: For the purpose of the report the L5-S1 disc space will be located on axial image 27 of 30. Moderate degenerative disc change L5-S1. No significant bone marrow replacing process. Sagittal postcontrast images suggest a trace amount of meningeal enhancement based on the sagittal images as well as is not duplicated on the transaxial images. Possibly of artifact is considered. No specific cord enhancement. L1-L2: No significant central canal or neural foraminal narrowing. L2-L3: No significant central canal or neural foraminal narrowing. L3-L4: No significant central canal or neural foraminal narrowing. L4-L5: No significant central canal or neural foraminal narrowing. L5-S1: Minimal broad-based disc bulge. Minimal narrowing left neural foramina. IMPRESSION: 1. Minimal broad-based disc bulge L5-S1. 2. Minimal narrowing left neural foramina. 3. Otherwise negative MRI lumbar spine. The above report was generated using voice recognition software. It may contain grammatical, syntax or spelling errors. Electronically signed by: Gallito Keane M.D. 01/09/2018 5:49 PM Dictated Date/Time: 01/09/2018 5:44 PM
--- NOTE | 2018-01-09 18:16 | Progress Note ---
Subjective Date of Service: Jan 09, 2018. Subjective Pt evaluation today including: conversation w/ patient, conversation w/ family (), physical exam, chart review, lab review, conversation w/ [facility] consultant ( neuro, rheum, gen surg), review of inpatient medication list Pain: mild headache but no neck pain PO Intake: tolerating clears w/o GI symptoms Voiding: voiding difficulty (requiring I/O cath last pm, and heard today) pt reports 2 weeks of fevers of 101-102 accompanied with chills. at the outset of the fever she had flu-like symptoms and several days of diarrhea. the diarrhea resolved but then she had persistent nausea along with vomiting and dry heaves. last episode of emesis was prior to admission. during the 2 week time period she had 2 visits to her PCP's office - first she was thought to have the flu, and the 2nd she was thought to have a sinus infection. she only took 1-2 days of zithromax. she had rash on both upper arms at the onset of the illness but this resolved quickly and has not returned no malar rash no rashes in other locations no recent travel no tick bites no obvious sick contacts but she does work at [employer] denies lupus flare; last flare about 5 years ago followed by Dr. Peña no recent dental work or history of heart murmur Problem List Medical Problems: (1) Acute cholecystitis Status: Acute (2) Dehydration Status: Acute (3) Fever Status: Acute (4) Urinary retention Status: Acute Review of Systems Constitutional: + fever, + chills, + weight loss, + fatigue Eyes: No worsening of vision ENT: + nasal symptoms, + problem reported (no mouth sores/aphthous ulcers), No hearing loss, No sore throat Respiratory: No cough, No shortness of breath, No dyspnea on exertion Cardiac: No chest pain Abdomen: + nausea, + vomiting, + diarrhea, No pain, No GI bleeding Musculoskeletal: + problem reported (no back pain or neck pain), No joint pain , No muscle pain, No swelling, No calf pain Female : + problem reported (urinary retention x 24 hours only; no history of such), No dysuria Neurologic: No memory loss, No paralysis, No weakness, No numbness/tingling, No vertigo Psychiatric: No depression symptoms Heme: No abnormal bleeding/bruising Endo: + fatigue Skin: + see HPI, + rash Objective Vital Signs Date Time Temp Pulse Resp B/P (MAP) Pulse Ox O2 Delivery O2 Flow Rate FiO2 01/09/18 15:40 Room Air 01/09/18 15:18 37.1 69 18 121/74 (90) 99 Room Air 01/09/18 09:18 37.8 01/09/18 07:45 98 Room Air 01/09/18 07:38 37.6 78 16 145/78 (100) 98 Room Air 01/09/18 02:05 37.1 68 16 145/86 98 Room Air 01/09/18 02:05 Room Air 01/09/18 02:05 37.1 68 16 145/86 (105) 98 Room Air 01/09/18 00:20 60 16 123/76 99 Room Air 01/08/18 22:20 70 16 122/78 98 Room Air 01/08/18 18:32 99 Room Air Physical Exam General Appearance: no apparent distress, + pertinent finding (nontoxic appearing) Eyes: PERRL ENT: pharynx normal (no ulcers) Neck: no JVD, + adenopathy present (b/l neck, tender) Respiratory/Chest: lungs clear, no respiratory distress, no accessory muscle use Cardiovascular: regular rate, rhythm, no gallop, no murmur Abdomen: normal bowel sounds, non tender, soft, no organomegaly, no pulsatile mass Extremities: normal range of motion, non-tender, normal inspection, no pedal edema Neurologic/Psychiatric: no motor/sensory deficits, alert, normal mood/affect, oriented x 3, + pertinent finding (ankle jerks 0 bilaterally, but patellar reflexes 1+ b/l ) Skin: no rash Lymphatic: + pertinent finding (no axillary or inguinal lymphadenopathy b/l ) Laboratory Results Last 24 Hours Test 01/08/18 18:22 01/08/18 18:30 01/08/18 18:51 01/08/18 19:02 White Blood Count 2.77 K/uL Red Blood Count 4.03 M/uL Hemoglobin 11.9 g/dL Hematocrit 34.1 % Mean Corpuscular Volume 84.6 fL Mean Corpuscular Hemoglobin 29.5 pg Mean Corpuscular Hemoglobin Concent 34.9 g/dl Platelet Count 138 K/uL Mean Platelet Volume 10.2 fL Neutrophils (%) (Auto) 80.5 % Lymphocytes (%) (Auto) 13.0 % Monocytes (%) (Auto) 6.1 % Eosinophils (%) (Auto) 0.0 % Basophils (%) (Auto) 0.0 % Neutrophils # (Auto) 2.23 K/uL Lymphocytes # (Auto) 0.36 K/uL Monocytes # (Auto) 0.17 K/uL Eosinophils # (Auto) 0.00 K/uL Basophils # (Auto) 0.00 K/uL RDW Standard Deviation 36.0 fL RDW Coefficient of Variation 11.6 % Immature Granulocyte % (Auto) 0.4 % Immature Granulocyte # (Auto) 0.01 K/uL Red Blood Cell Morphology Unremarkable Prothrombin Time 11.2 SECONDS Prothromb Time International Ratio 1.1 Activated Partial Thromboplast Time 28.1 SECONDS Partial Thromboplastin Ratio 1.1 Sodium Level 129 mmol/L Potassium Level 3.7 mmol/L Chloride Level 97 mmol/L Carbon Dioxide Level 24 mmol/L Anion Gap 8.0 mmol/L Blood Urea Nitrogen 11 mg/dl Creatinine 0.71 mg/dl Est Creatinine Clear Calc Drug Dose 84.4 ml/min Estimated GFR () 114.3 Estimated GFR (Non- 98.6 BUN/Creatinine Ratio 14.7 Random Glucose 93 mg/dl Calcium Level 8.3 mg/dl Magnesium Level 2.1 mg/dl Total Bilirubin 0.5 mg/dl Direct Bilirubin 0.1 mg/dl Aspartate Amino Transf (AST/SGOT) 38 U/L Alanine Aminotransferase (ALT/SGPT) 48 U/L Alkaline Phosphatase 51 U/L Total Creatine Kinase 57 U/L Total Protein 7.7 gm/dl Albumin 3.4 gm/dl Monoscreen NEG Influenza Type A (RT-PCR) Neg for Influ A Influenza Type B (RT-PCR) Neg for Influ B Bedside Lactic Acid Venous 0.78 mmol/L Urine Color YELLOW Urine Appearance CLEAR Urine pH 6.0 Urine Specific [place] 1.014 Urine Protein NEG Urine Glucose (UA) NEG Urine Ketones NEG Urine Occult Blood NEG Urine Nitrite NEG Urine Bilirubin NEG Urine Urobilinogen NEG Urine Leukocyte Esterase NEG Urine WBC (Auto) 1-5 /hpf Urine RBC (Auto) 0-4 /hpf Urine Hyaline Casts (Auto) 1-5 /lpf Urine Epithelial Cells (Auto) 5-10 /lpf Urine Bacteria (Auto) NEG Test 01/09/18 08:26 01/09/18 15:39 White Blood Count 1.68 K/uL Red Blood Count 3.74 M/uL Hemoglobin 10.9 g/dL Hematocrit 31.9 % Mean Corpuscular Volume 85.3 fL Mean Corpuscular Hemoglobin 29.1 pg Mean Corpuscular Hemoglobin Concent 34.2 g/dl Platelet Count 122 K/uL Mean Platelet Volume 9.8 fL Neutrophils (%) (Auto) 69.1 % Lymphocytes (%) (Auto) 22.6 % Monocytes (%) (Auto) 8.3 % Eosinophils (%) (Auto) 0.0 % Basophils (%) (Auto) 0.0 % Neutrophils # (Auto) 1.16 K/uL Lymphocytes # (Auto) 0.38 K/uL Monocytes # (Auto) 0.14 K/uL Eosinophils # (Auto) 0.00 K/uL Basophils # (Auto) 0.00 K/uL RDW Standard Deviation 37.1 fL RDW Coefficient of Variation 11.8 % Immature Granulocyte % (Auto) 0.0 % Immature Granulocyte # (Auto) 0.00 K/uL Erythrocyte Sedimentation Rate 20 mm/hr Sodium Level 136 mmol/L Potassium Level 3.7 mmol/L Chloride Level 103 mmol/L Carbon Dioxide Level 22 mmol/L Anion Gap 11.0 mmol/L Blood Urea Nitrogen 10 mg/dl Creatinine 0.56 mg/dl Est Creatinine Clear Calc Drug Dose 106.9 ml/min Estimated GFR () 125.1 Estimated GFR (Non- 108.0 BUN/Creatinine Ratio 16.9 Random Glucose 76 mg/dl Calcium Level 7.8 mg/dl Magnesium Level 2.2 mg/dl Total Bilirubin 0.3 mg/dl Aspartate Amino Transf (AST/SGOT) 33 U/L Alanine Aminotransferase (ALT/SGPT) 42 U/L Alkaline Phosphatase 43 U/L C-Reactive Protein 0.55 mg/dl Total Protein 6.5 gm/dl Albumin 2.9 gm/dl Globulin 3.6 gm/dl Albumin/Globulin Ratio 0.8 Assessment and Plan 52yo female with: 1. fever of uncertain origin - her pancytopenia on CBC along with fever suggests the following diff dx - SLE vs viral process (EBV, CMV, parvo, etc) vs tick-borne illness vs malignancy/ leukemic process vs other. Spoke with Dr. Peña from rheum who will see her in the AM to determine if she is in the midst of a lupus exacerbation. Send EBV, CMV, and parvo studies. Defer on tick-borne testing for now (ehrlichia, etc). If CBC worsens then send for formal peripheral smear by pathology. Follow blood/urine cx's. Continue rocephin for now while ruling out bacteremia. At this time she has no signs/symptoms of meningitis. 2. SLE - with possible flare? Her fever, cbc abnormalities fit with SLE but she otherwise doesn't have other symptoms/signs of active SLE. Her u/a is benign suggesting no renal involvement from her SLE. Send C3, C4, and anti-DS DNA. Formal rheum consult requested with Dr. Peña. Sed rate/crp are somewhat reassuring for her SLE. I don't know how urinary retention would fit in with her SLE either. 3. urinary retention - s/p heard insertion. Check MRI lumbar spine to r/o cord compression causing her symptoms (abscess, etc). She thus far has intact strength in her LEs, no sensory loss, and normal patellar reflexes making Guillain-[place], transverse myelitis, or a thoracic spinal cord lesion unlikely. U/a not suspicious for UTI. Leave heard for now. Consider urology consultation. I am uncertain if this issue is related to #1, #2 or purely separate. 4. DVT proph - SCDs for now in the event she needs a procedure (LP, etc). 5. hypothyroidism, acquired - cont synthroid, TSH in am. 6. hyponatremia - due to dehydration - resolved with IVF. 7. abnormal LFTs - resolved. Etiology uncertain. No evidence of liver disease on imaging. 8. abnormal gall bladder imaging - gen surg has seen; outpatient f/u advised. I do not believe she has acalculous cholecystitis at this time. 9. persistent URI symptoms, cervical lymphadenopathy - could have early sinusitis. If she has sinusitis rocephin should help. [place] can sometimes present in adults with persistent URI type symptoms and lymphadenopathy. Titers pending. updated at bedside total time today about 60 minutes including coordinating care with multiple consultants, review of imaging & labs, etc Continued [facility] stay due to: fever, multiple IV medications needed
[2018-01-09] MEDS ORDERED: NURSING VERBAL MED ORDER ONE (18:30)
[2018-01-09] MEDS ORDERED: HYDROCORTISONE HC 2.5% CRM 30GM TUBE EXT ONE (20:45)
[2018-01-09 23:39] VITALS: BP 128/79; PULSE 74; TEMP 37.9; O2SAT 97
[2018-01-10] VITALS (8 sets, daily range): BP systolic 126–138; BP diastolic 76–84; PULSE 58–76; TEMP 37–37.4; O2SAT 97–100
[2018-01-10] MEDS: CEFTRIAXONE SOD INJ 2,000 MG in DEXTROSE 5% 50ML 50 ML IV SCH (03:23)
[2018-01-10] MEDS: SODIUM CHLORIDE 0.9% 1000ML 1,000 ML IV SCH ×2 (03:23→10:03)
[2018-01-10] MEDS: LEVOTHYROXINE 112 MCG TAB PO SCH (05:32)
--- NOTE | 2018-01-10 07:36 | Rheumatology Consultation ---
Rheumatology Consultation Date of Consultation: Jan 10, 2018. Reason for Consultation: Persistent fevers and acute urinary retention in patient with SLE History of Present Illness Ms. Moreno is a pleasant 52 year old woman who established care with me in 2014. She was diagnosed with lupous in 2012 with clinical manifestations of myalgias, inflammatory arthritis, with positive ANTHONY, positive [employer] SAL[employer], positive chromatin antibodies and dsDNA. She has a longstanding history of leukopenia and hypothyroidism. She has been maintained on Plaquenil for several years. Past treatments also included methotrexate. She reports that she was in her usual state of good health until 2 weeks prior to admission. Onset of symptoms began on a when she experienced diarrhea (non bloody) for one day. Then that weekend, she felt exhausted and attributed her fatigue to attending her uncle's and then visiting an aunt in the hospital who had sustained a hip fracture. She went to work that following Wednesday. On Wednesday, she had another episode of diarrhea associated with GI upset and chills. She stayed home and did not feel well. By Wednesday, she thought that she was improving; however on Wednesday, she developed nausea and vomiting. She saw her PCP on the Wednesday before admission and was diagnosed with the flu. She was told that her symptoms would last 10-14 days. She was advised to rest and stay hydrated. She was prescribed Phenergan for nausea and took 2 doses only because she did not like the way it made her feel. She continued to experience nausea and vomited mucus about 3 times a day. She also noted fevers that she treated with Tylenol alternating with Advil. She recalls that she would have random moments of improvement but then would feel bad again. By Wednesday01/07/18 she was not improving and went to see her PCP again. She saw a different physician. She complained of a headache and was diagnosed with a sinus infection and prescribed Z teena. She was advised to stay hydrated. She noticed that she was straining to void on Wednesday and on Wednesday the symptoms persisted therefore she presented to [facility] ED for further evaluation. A heard catheter was placed and 2 liters of urine was drained. Since her admission, she continues to have fevers. Her labs were notable for low white count and a down trend of her platelets. Urinalysis was normal as was her creatinine. Imaging studies include an MRI of the lumbar spine that only revealed mild disc bulge at L5-S1, CT scan of the abdomen/pelvis demonstrating gallbladder wall thickening, and an ultrasound of the abdomen showing gallbladder sludge. She continues to feel exhausted. She had one episode of a rash on her arms prior to onset of her illness. She denies any recent travel or sick contacts. No new medications aside from those prescribed for this illness. She has not experienced any joint pain, respiratory issues, oral/nasal ulcers, chest pain, weakness, or paraesthesias. Past Medical/Surgical History Systemic lupus erythematosus Anemia of chronic disease Hypothyroidism (+thyroid antibodies) Insomnia Leukopenia Long-term use of Plaquenil Partial thyroidectomy Social History Smoking Status: Never Smoker History of Alcohol Use: No Drug Use: none Marital Status: Housing Status: lives with family Occupation Status: employed Review of Systems Constitutional: + fever, + chills, + weakness, + fatigue Respiratory: No cough, No shortness of breath, No dyspnea on exertion Abdomen: + nausea, + vomiting, + diarrhea Musculoskeletal: No joint pain, No muscle pain, No swelling Female : No urinary frequency Skin: + rash Allergies Coded Allergies: Penicillins (Verified Allergy, Intermediate, RASH, 01/03/10) Medications Current Inpatient Medications Medications (Trade) Dose Ordered Sig/Roland Route Start Time Stop Time Status Last Admin Dose Admin Ioversol (Optiray 320) 100 ml UD PRN IV 01/08/18 18:15 01/12/18 18:14 Acetaminophen (Tylenol Tab) 650 mg Q4H PRN PO 01/09/18 01:15 02/08/18 01:14 01/09/18 23:45 650 MG Al Hydrox/Mg Hydrox/Simethicone (Maalox Max Susp) 15 ml Q4H PRN PO 01/09/18 01:15 02/08/18 01:14 Magnesium Hydroxide (Milk Of Magnesia Susp) 30 ml Q6H PRN PO 01/09/18 01:15 02/08/18 01:14 Polyethylene (Miralax Powder Packet) 17 gm DAILY PRN PO 01/09/18 01:15 02/08/18 01:14 Ondansetron HCl (Zofran Inj) 4 mg Q6H PRN IV 01/09/18 01:15 02/08/18 01:14 Sodium Chloride 1,000 ml @ 125 mls/hr Q8H IV 01/09/18 03:00 02/08/18 02:59 01/10/18 03:23 125 MLS/HR Ceftriaxone Sodium 2000 mg/ Dextrose 70 ml @ 100 mls/hr Q24H IV 01/09/18 04:00 01/19/18 03:59 01/10/18 03:23 100 MLS/HR Morphine Sulfate (MoRPHine SULFATE INJ) 1 mg Q2HWA PRN IV 01/09/18 01:15 01/23/18 01:14 Hydroxychloroquine Sulfate (Plaquenil Tab) 200 mg BID PO 01/09/18 09:00 02/08/18 08:59 01/09/18 20:30 200 MG Levothyroxine Sodium (Synthroid Tab) 112 mcg DAILYBB PO 01/09/18 06:00 02/08/18 05:59 01/10/18 05:32 112 MCG Miscellaneous (Iv Fluids Completed) 1 ea PRN PRN N/A 01/09/18 02:30 01/09/19 02:29 Gadobutrol (Gadavist) 6.8 mmol UD PRN IV 01/09/18 17:30 01/13/18 17:29 Physical Exam Date Time Temp Pulse Resp B/P (MAP) Pulse Ox O2 Delivery O2 Flow Rate FiO2 01/10/18 00:56 37.1 01/09/18 23:39 37.9 74 16 128/79 (95) 97 Room Air 01/09/18 23:35 Room Air 01/09/18 15:40 Room Air 01/09/18 15:18 37.1 69 18 121/74 (90) 99 Room Air 01/09/18 09:18 37.8 01/09/18 07:45 98 Room Air 01/09/18 07:38 37.6 78 16 145/78 (100) 98 Room Air Eyes: bilateral eyes normal inspection, bilateral eyes EOMI ENT: + nasal congestion, + pertinent finding (tender submandibular glands) Neck: supple Respiratory: lungs clear, normal breath sounds, no respiratory distress Cardiovascular: regular rate, rhythm, no edema Abdomen: normal bowel sounds, non tender, soft, no organomegaly Musculoskeletal: No joint tenderness or swelling Neurologic/Psychiatric: normal mood/affect, oriented x 3 Skin: normal color, warm/dry, no rash Laboratory Results Last 24 Hours Test 01/09/18 08:26 2/11/18 15:39 01/10/18 04:44 White Blood Count 1.68 K/uL Red Blood Count 3.74 M/uL Hemoglobin 10.9 g/dL Hematocrit 31.9 % Mean Corpuscular Volume 85.3 fL Mean Corpuscular Hemoglobin 29.1 pg Mean Corpuscular Hemoglobin Concent 34.2 g/dl Platelet Count 122 K/uL Mean Platelet Volume 9.8 fL Neutrophils (%) (Auto) 69.1 % Lymphocytes (%) (Auto) 22.6 % Monocytes (%) (Auto) 8.3 % Eosinophils (%) (Auto) 0.0 % Basophils (%) (Auto) 0.0 % Neutrophils # (Auto) 1.16 K/uL Lymphocytes # (Auto) 0.38 K/uL Monocytes # (Auto) 0.14 K/uL Eosinophils # (Auto) 0.00 K/uL Basophils # (Auto) 0.00 K/uL RDW Standard Deviation 37.1 fL RDW Coefficient of Variation 11.8 % Immature Granulocyte % (Auto) 0.0 % Immature Granulocyte # (Auto) 0.00 K/uL Erythrocyte Sedimentation Rate 20 mm/hr Sodium Level 136 mmol/L Potassium Level 3.7 mmol/L Chloride Level 103 mmol/L Carbon Dioxide Level 22 mmol/L Anion Gap 11.0 mmol/L Blood Urea Nitrogen 10 mg/dl Creatinine 0.56 mg/dl Est Creatinine Clear Calc Drug Dose 106.9 ml/min Estimated GFR () 125.1 Estimated GFR (Non- 108.0 BUN/Creatinine Ratio 16.9 Random Glucose 76 mg/dl Calcium Level 7.8 mg/dl Magnesium Level 2.2 mg/dl Total Bilirubin 0.3 mg/dl Aspartate Amino Transf (AST/SGOT) 33 U/L Alanine Aminotransferase (ALT/SGPT) 42 U/L Alkaline Phosphatase 43 U/L C-Reactive Protein 0.55 mg/dl Total Protein 6.5 gm/dl Albumin 2.9 gm/dl Globulin 3.6 gm/dl Albumin/Globulin Ratio 0.8 ESR 20 CRP 0.55 ALBUMEN 2.9 Pending labs: complements dsDNA Assessment & Plan Assessment & Plan: 52 yo F presenting with urinary retention in setting of 2 weeks of GI symptoms and febrile illness. I doubt that her lupus is the cause of her acute urinary retention. So far the cause of her symptoms remain unclear. However, her persistent flu-like illness including her fevers are reminiscent of symptoms that occurred prior to her diagnosis of lupus. Recommendations: 1. Please consider treating with 40 mg of IV Solu-Medrol daily while she is in- patient. 2. Transition to prednisone 40 mg daily upon discharge. 3. Continue Plaquenil. 4. If she is discharged today, she was advised to keep her appointment with Fariba Rodriguez PA-C scheduled for tomorrow. Otherwise patient can follow-up with me on at 8 am or Noon, or Wednesday01/14/18 at 8 am or Noon. Thank you for allowing rheumatology to participate in the care of this patient.
[2018-01-10 08:27] LABS: ALBUMIN 2.7 gm/dl (3.4-5.0); CALCIUM 7.8 mg/dl (8.5-10.1); CREATININE 0.55 mg/dl (0.60-1.20); POTASSIUM 3.7 mmol/L (3.5-5.1)
[2018-01-10] MEDS ORDERED: SODIUM CHLORIDE 0.65% NA SOLN 45 ML (OCEAN) PRN (08:30)
[2018-01-10] MEDS ORDERED: NURSING DECISION MEDICATION ORDER SCH (08:30)
[2018-01-10 08:34] LABS: BASO % 0.4 %; BASO ABS # 0.01 K/uL (0-0.2); EOS % 0.4 %; EOS ABS # 0.01 K/uL (0-0.5); HEMATOCRIT 31.4 % (37-47); HEMOGLOBIN 10.6 g/dL (12.0-16.0); LYMPH % 17.6 %; LYMPH ABS # 0.41 K/uL (1.2-3.4); MEAN CORPUSCULAR HEMOGLOBIN 29.4 pg (25-34); MEAN CORPUSCULAR HGB CONC 33.8 g/dl (32-36); MEAN PLATELET VOLUME 10.1 fL (7.4-10.4); MONO % 7.3 %; MONO ABS # 0.17 K/uL (0.11-0.59); NEUT % 74.3 %; NEUT ABS # 1.73 K/uL (1.4-6.5); NUCLEATED RED BLOOD CELL ABS 0.02 K/uL (0-0); PLATELET COUNT 107 K/uL (130-400); RED CELL DISTRIBUTION WIDTH SD 38.6 fL (36.4-46.3); WHITE BLOOD COUNT 2.33 K/uL (4.8-10.8)
[2018-01-10 08:35] LABS: TOTAL PROTEIN 6.4 gm/dl (6.4-8.2)
[2018-01-10] MEDS: HYDROXYCHLOROQUINE SULFATE 200 MG TAB PO SCH ×2 (08:51→21:21)
[2018-01-10] MEDS ORDERED: METHYLPREDNISOLONE IV 40 MG in SYRINGE 0 ML IV ONE (10:00)
[2018-01-10] MEDS: ACETAMINOPHEN 325 MG TAB PO PRN (10:02)
[2018-01-10] MEDS: METHYLPREDNISOLONE IV 40 MG in SYRINGE 0 ML IV SCH (10:14)
--- NOTE | 2018-01-10 10:44 | Urology Consultation ---
History General Date of Service: Jan 10, 2018. Chief Complaint: urinary retention Primary Care Physician: Ashanti Graham D.O. Pt seen a urologist before?: No History of Present Illness 52 yo female with a hx of Lupus presents to [facility] with c/o UR. She reports difficulty voiding x 2 days. She denies any previous hx of UR. Heard catheter placed in the ED for >1L output per notes (pt thought it was 2L output though). Heard currently draining clear, yellow urine. Per the pt, she was told she had an outpatient UC&S growing some small amounts of e coli. She denies any dysuria or hematuria prior to admission. She reports only 1 hx of UTI in the past. The pt also notes fevers and chills x 2 weeks prior to admission. Noted to have a fever of 39.4C on admission. Improved since admission. White count is 2.[address] on admission negative for hydro or stones. Imaging Imaging: CT Laboratory Last 24 Hours Test 01/10/18 07:50 White Blood Count 2.33 K/uL Red Blood Count 3.61 M/uL Hemoglobin 10.6 g/dL Hematocrit 31.4 % Mean Corpuscular Volume 87.0 fL Mean Corpuscular Hemoglobin 29.4 pg Mean Corpuscular Hemoglobin Concent 33.8 g/dl Platelet Count 107 K/uL Mean Platelet Volume 10.1 fL Neutrophils (%) (Auto) 74.3 % Lymphocytes (%) (Auto) 17.6 % Monocytes (%) (Auto) 7.3 % Eosinophils (%) (Auto) 0.4 % Basophils (%) (Auto) 0.4 % Neutrophils # (Auto) 1.73 K/uL Lymphocytes # (Auto) 0.41 K/uL Monocytes # (Auto) 0.17 K/uL Eosinophils # (Auto) 0.01 K/uL Basophils # (Auto) 0.01 K/uL RDW Standard Deviation 38.6 fL RDW Coefficient of Variation 12.0 % Immature Granulocyte % (Auto) 0.0 % Immature Granulocyte # (Auto) 0.00 K/uL Nucleated RBC Absolute Count (auto) 0.02 K/uL Nucleated Red Blood Cells % 0.8 % Sodium Level 135 mmol/L Potassium Level 3.7 mmol/L Chloride Level 105 mmol/L Carbon Dioxide Level 20 mmol/L Anion Gap 10.0 mmol/L Blood Urea Nitrogen 7 mg/dl Creatinine 0.55 mg/dl Est Creatinine Clear Calc Drug Dose 108.9 ml/min Estimated GFR () 125.9 Estimated GFR (Non- 108.6 BUN/Creatinine Ratio 11.8 Random Glucose 81 mg/dl Calcium Level 7.8 mg/dl Total Bilirubin 0.3 mg/dl Aspartate Amino Transf (AST/SGOT) 34 U/L Alanine Aminotransferase (ALT/SGPT) 37 U/L Alkaline Phosphatase 43 U/L Total Protein 6.4 gm/dl Albumin 2.7 gm/dl Globulin 3.7 gm/dl Albumin/Globulin Ratio 0.7 Thyroid Stimulating Hormone (TSH) 1.210 uIu/ml Problem List Medical Problems: (1) Acute cholecystitis Status: Acute (2) Dehydration Status: Acute (3) Fever Status: Acute (4) Urinary retention Status: Acute Past History hypothyroidism, other (lupus) Past Surgical History: thyroidectomy Family History Patient reports no known family medical history. Social History Smoking: non-smoker Alcohol: never Drug use: none Marital status: Housing status: lives with family Occupation status: employed Immunizations History of Influenza Vaccine: Yes Influenza Vaccine Date: Oct 15, 2005 History of Tetanus Vaccine?: unsure of date History of Pneumococcal: No History of Hepatitis B Vaccine: No History of MDRO No Allergies Coded Allergies: Penicillins (Verified Allergy, Intermediate, RASH, 01/03/10) Medications Home Medications: Home Meds and Scripts Medications Dose Route/Sig Max Daily Dose Days Date Category Levothyroxine Sodium 112 Mcg Tab 112 Mcg PO DAILY 01/08/18 Reported Plaquenil (Hydroxychloroquine Sulfate) 200 Mg Tab 200 Mg PO BID 01/08/18 Reported Inpatient Medications: Current Inpatient Medications Medications (Trade) Dose Ordered Sig/Roland Route Start Time Stop Time Status Last Admin Dose Admin Ioversol (Optiray 320) 100 ml UD PRN IV 01/08/18 18:15 01/12/18 18:14 Acetaminophen (Tylenol Tab) 650 mg Q4H PRN PO 01/09/18 01:15 02/08/18 01:14 01/10/18 10:02 650 MG Al Hydrox/Mg Hydrox/Simethicone (Maalox Max Susp) 15 ml Q4H PRN PO 01/09/18 01:15 02/08/18 01:14 Magnesium Hydroxide (Milk Of Magnesia Susp) 30 ml Q6H PRN PO 01/09/18 01:15 02/08/18 01:14 Polyethylene (Miralax Powder Packet) 17 gm DAILY PRN PO 01/09/18 01:15 02/08/18 01:14 Ondansetron HCl (Zofran Inj) 4 mg Q6H PRN IV 01/09/18 01:15 02/08/18 01:14 Sodium Chloride 1,000 ml @ 125 mls/hr Q8H IV 01/09/18 03:00 02/08/18 02:59 01/10/18 10:03 125 MLS/HR Ceftriaxone Sodium 2000 mg/ Dextrose 70 ml @ 100 mls/hr Q24H IV 01/09/18 04:00 01/19/18 03:59 01/10/18 03:23 100 MLS/HR Morphine Sulfate (MoRPHine SULFATE INJ) 1 mg Q2HWA PRN IV 01/09/18 01:15 01/23/18 01:14 Hydroxychloroquine Sulfate (Plaquenil Tab) 200 mg BID PO 01/09/18 09:00 02/08/18 08:59 01/10/18 08:51 200 MG Levothyroxine Sodium (Synthroid Tab) 112 mcg DAILYBB PO 01/09/18 06:00 02/08/18 05:59 01/10/18 05:32 112 MCG Miscellaneous (Iv Fluids Completed) 1 ea PRN PRN N/A 01/09/18 02:30 01/09/19 02:29 Gadobutrol (Gadavist) 6.8 mmol UD PRN IV 01/09/18 17:30 01/13/18 17:29 Sodium Chloride ([place] Nasal [place]) 1 sprays PRN PRN NA 01/10/18 08:30 02/09/18 08:29 01/10/18 08:51 1 SPRAYS Methylprednisolone Sodium Succinate 40 mg/Syringe 0.64 ml @ 1.5 mls/min Q24H IV 01/10/18 10:00 02/09/18 09:59 01/10/18 10:14 1.5 MLS/MIN Review of Systems Review of Systems Constitutional: No fever, No chills Eyes: No double vision Neurological: No dizzy Endocrine: No excessive thirst Gastrointestinal: No abdominal pain, No nausea, No vomiting Cardiovascular: No chest pain Respiratory: No shortness of breath Skin: No rash Musculoskeletal: No back pain Female : No painful urination, No blood in urine Physical Exam Vital Signs: Vital Signs Past 12 Hours Date Time Temp Pulse Resp B/P (MAP) Pulse Ox O2 Delivery O2 Flow Rate FiO2 01/10/18 07:38 37.4 74 16 134/84 (101) 100 Room Air 01/10/18 00:56 37.1 01/09/18 23:39 37.9 74 16 128/79 (95) 97 Room Air 01/09/18 23:35 Room Air Physical Exam: General Appearance: no apparent distress Eyes: bilateral eyes normal inspection ENT: hearing grossly normal Neck: no JVD Respiratory/Chest: no respiratory distress, no accessory muscle use Cardiovascular: no JVD Extremities: normal inspection Neurologic/Psychiatric: alert, normal mood/affect, oriented x 3 Skin: normal color Assessment & Plan Assessment & Plan A/P: Urinary retention, suspected UTI, fever of unknown origin AFVSS. Obtain outside UC&S results. Continue IV abx pending culture sensitivities. Fever of unknown origin. ? r/t UTI or possible pyelonephritis vs Lupus flare or other etiology? Recommend 14 days of abx therapy pending culture sensitivities. Will plan to leave heard catheter in place for 5-7 days. Outpatient TOV at that time. Thanks for the consult. Will continue to follow along with primary service.
--- NOTE | 2018-01-10 10:47 | Hospitalist Progress Note ---
Hospitalist Progress Note Date of Service Jan 10, 2018. (iAlyn Roque, PASteveC) Subjective Pt evaluation today including: conversation w/ patient, physical exam, chart review, lab review, review of studies, conversation w/ performance consultant (Urology), review of inpatient medication list Patient seen and evaluated. Continues to have intermittent fevers. States today isn't as good of a day compared to yesterday and she relates this to her fever. States she was also called by PCP that there is E. coli in the urinalysis that they obtained on her. Will start steroids per Rheum recommendations. States she is tolerating Full Liquid diet and would like to introduce some solids such as toast but doesn't want to overdue. Additional Comments: General/Constitutional: + fever, + fatigue ENT: + nasal congestion Cardiovascular: Denies chest pain, palpitations, edema Respiratory: Denies cough, sputum, SOB, wheezing, orthopnea GI: + nausea; Denies vomiting, abdominal pain, constipation, diarrhea : Denies dysuria Neurologic: Denies dizziness/lightheadedness Hematologic/Lymphatic: Denies bleeding/clotting abnormalities (Ailyn Roque, MILYC) Medications Current Inpatient Medications Medications (Trade) Dose Ordered Sig/Roland Route Start Time Stop Time Status Last Admin Dose Admin Ioversol (Optiray 320) 100 ml UD PRN IV 01/08/18 18:15 01/12/18 18:14 Acetaminophen (Tylenol Tab) 650 mg Q4H PRN PO 01/09/18 01:15 02/08/18 01:14 01/10/18 10:02 650 MG Al Hydrox/Mg Hydrox/Simethicone (Maalox Max Susp) 15 ml Q4H PRN PO 01/09/18 01:15 02/08/18 01:14 Magnesium Hydroxide (Milk Of Magnesia Susp) 30 ml Q6H PRN PO 01/09/18 01:15 02/08/18 01:14 Polyethylene (Miralax Powder Packet) 17 gm DAILY PRN PO 01/09/18 01:15 02/08/18 01:14 Ondansetron HCl (Zofran Inj) 4 mg Q6H PRN IV 01/09/18 01:15 02/08/18 01:14 Sodium Chloride 1,000 ml @ 125 mls/hr Q8H IV 01/09/18 03:00 02/08/18 02:59 01/10/18 10:03 125 MLS/HR Ceftriaxone Sodium 2000 mg/ Dextrose 70 ml @ 100 mls/hr Q24H IV 01/09/18 04:00 01/19/18 03:59 01/10/18 03:23 100 MLS/HR Morphine Sulfate (MoRPHine SULFATE INJ) 1 mg Q2HWA PRN IV 01/09/18 01:15 01/23/18 01:14 Hydroxychloroquine Sulfate (Plaquenil Tab) 200 mg BID PO 01/09/18 09:00 02/08/18 08:59 01/10/18 08:51 200 MG Levothyroxine Sodium (Synthroid Tab) 112 mcg DAILYBB PO 01/09/18 06:00 02/08/18 05:59 01/10/18 05:32 112 MCG Miscellaneous (Iv Fluids Completed) 1 ea PRN PRN N/A 01/09/18 02:30 01/09/19 02:29 Gadobutrol (Gadavist) 6.8 mmol UD PRN IV 01/09/18 17:30 01/13/18 17:29 Sodium Chloride ([address] Nasal [place]) 1 sprays PRN PRN NA 01/10/18 08:30 02/09/18 08:29 01/10/18 08:51 1 SPRAYS Methylprednisolone Sodium Succinate 40 mg/Syringe 0.64 ml @ 1.5 mls/min Q24H IV 01/10/18 10:00 02/09/18 09:59 01/10/18 10:14 1.5 MLS/MIN (Ailyn Roque PA-C) Objective Vital Signs Date Time Temp Pulse Resp B/P (MAP) Pulse Ox O2 Delivery O2 Flow Rate FiO2 01/10/18 07:38 37.4 74 16 134/84 (101) 100 Room Air 01/10/18 00:56 37.1 01/09/18 23:39 37.9 74 16 128/79 (95) 97 Room Air 01/09/18 23:35 Room Air 01/09/18 15:40 Room Air 01/09/18 15:18 37.1 69 18 121/74 (90) 99 Room Air (Ailyn Roque PA-C) Physical Exam Notes: General Appearance: WDWN in NAD who is alert HEENT: Head is normocephalic/atraumatic; Hearing grossly intact Neck: Supple; Trachea midline; Neg JVD Heart: RRR with no M/G/R Lungs: CTA in all lung bell bilaterally; Respirations unlabored; Neg accessory muscle use Abdomen: Soft, non-tender, non-distended; Positive BS x 4 quadrants Extremities: Neg cyanosis or edema Neurological: Speech clear; Neg focal neurologic deficits Psychiatric: Appropriate mood/affect Skin: Normal Color; Warm/Dry (Ailyn Roque, DAIN) Laboratory Results Last 24 Hours Test 01/10/18 07:50 White Blood Count 2.33 K/uL Red Blood Count 3.61 M/uL Hemoglobin 10.6 g/dL Hematocrit 31.4 % Mean Corpuscular Volume 87.0 fL Mean Corpuscular Hemoglobin 29.4 pg Mean Corpuscular Hemoglobin Concent 33.8 g/dl Platelet Count 107 K/uL Mean Platelet Volume 10.1 fL Neutrophils (%) (Auto) 74.3 % Lymphocytes (%) (Auto) 17.6 % Monocytes (%) (Auto) 7.3 % Eosinophils (%) (Auto) 0.4 % Basophils (%) (Auto) 0.4 % Neutrophils # (Auto) 1.73 K/uL Lymphocytes # (Auto) 0.41 K/uL Monocytes # (Auto) 0.17 K/uL Eosinophils # (Auto) 0.01 K/uL Basophils # (Auto) 0.01 K/uL RDW Standard Deviation 38.6 fL RDW Coefficient of Variation 12.0 % Immature Granulocyte % (Auto) 0.0 % Immature Granulocyte # (Auto) 0.00 K/uL Nucleated RBC Absolute Count (auto) 0.02 K/uL Nucleated Red Blood Cells % 0.8 % Sodium Level 135 mmol/L Potassium Level 3.7 mmol/L Chloride Level 105 mmol/L Carbon Dioxide Level 20 mmol/L Anion Gap 10.0 mmol/L Blood Urea Nitrogen 7 mg/dl Creatinine 0.55 mg/dl Est Creatinine Clear Calc Drug Dose 108.9 ml/min Estimated GFR () 125.9 Estimated GFR (Non- 108.6 BUN/Creatinine Ratio 11.8 Random Glucose 81 mg/dl Calcium Level 7.8 mg/dl Total Bilirubin 0.3 mg/dl Aspartate Amino Transf (AST/SGOT) 34 U/L Alanine Aminotransferase (ALT/SGPT) 37 U/L Alkaline Phosphatase 43 U/L Total Protein 6.4 gm/dl Albumin 2.7 gm/dl Globulin 3.7 gm/dl Albumin/Globulin Ratio 0.7 Thyroid Stimulating Hormone (TSH) 1.210 uIu/ml (Ailyn Roque, PA-C) Assessment and Plan 52yo female with: FUO: SLE vs Viral Process vs Tick-Borne Illness vs Malignancy/Leukemic Process vs Other - Suspicion that SLE may be more likely - per Rheum note that these symptoms mimicked her symptoms prior to diagnosis - CBC is slightly improved in comparison from yesterday - Reporting low levels of E. coli in outpatient UA from PCP - inpatient UA still pending - Rocephin should be good coverage and will obtain sensitivities - Rocephin 2 g IV daily Possible SLE Exacerbation: - Solu-Medrol 40 mg IV daily with plans for oral conversion on D/C - Plaquenil 200 mg BID - Rheum following - appreciate recommendations as above Urinary Retention: - MRI largely unremarkable to explain this; outpatient UCx suggests low levels of E. coli which may be the cause - Consult Urology - appreciate recommendations Persistent URI Symptoms with Cervical Lymphadenopathy: Possible Early Sinusitis - [place] screen negative - continue Rocephin as above Hypothyroidism: COMPENSATED - Synthroid 112 mcg daily Abnormal LFTs: RESOLVED Abnormal GB Imaging: - Gen Surg consulted - no plan for current surgical intervention - plan for outpatient F/U in 2 weeks DVT Prophylaxis: SCDs Continued [facility] stay due to: multiple IV medications needed Discharge planning: home (Ailyn Roque, PA-C) Attending Attestation & Progress note: Pt seen/examined, chart reviewed, care plan d/w THOM Roque. I agree w/ the grayson components of her documentation. Pt felt poorly this AM when she had temp spike, but w/ resolved fever she feels better. Appetite improved. No nausea/emesis. No rash; no joint pains; headache improved. No cough. Walking easily with good strength in legs. VSS, febrile this AM once again gen - looks better neck - 1cm lymph nodes b/l - mildly tender mouth - MMM heart - RRR, s1, s2 lungs - CTA b/l abd - soft, NT, no HSM ext - no edema, no synovitis any joint cbc - WBC 2.3 platelets 107 Hb 10.6 urine cx from [facility] med - 60,000 CFU e. coli, pansensitive EXCEPT resistant to amp, amp/sulbactam, and cefazolin blood cx's negative x 48 hrs A/P: 1. FUO - either 2nd to SLE vs viral process; doubt UTI (if UTI was causing 2 weeks of fever she would likely have been bacteremic, septic shock, etc). can d/c rocephin, change to cipro to cover UTI. 2. SLE with possible flare ? - seen by Dr. Peña - this may in fact be SLE flare. Starting steroids. await Anti-DS DNA and complements. 3. urinary retention - 2nd to UTI? - heard, urology consult, Rx UTI. 4. pancytopenia - either SLE vs viral vs other. daily CBC. 5. hypothyroidism - compensated. 6. FEN - d/c fluids - drinking well; advance diet. prem FLOWER MD (Bharath Flower MD)
[2018-01-10] MEDS: CIPROFLOXACIN 500 MG TAB PO SCH (21:21)
[2018-01-11] MEDS: LEVOTHYROXINE 112 MCG TAB PO SCH (06:07)
[2018-01-11 07:51] VITALS: BP 124/80; PULSE 61; TEMP 36.8; O2SAT 97
[2018-01-11 08:10] LABS: HEMATOCRIT 29.2 % (37-47); HEMOGLOBIN 10.2 g/dL (12.0-16.0); MEAN CELL VOLUME 84.4 fL (80-100); MEAN CORPUSCULAR HEMOGLOBIN 29.5 pg (25-34); MEAN CORPUSCULAR HGB CONC 34.9 g/dl (32-36); MEAN PLATELET VOLUME 9.6 fL (7.4-10.4); PLATELET COUNT 136 K/uL (130-400); RED CELL DISTRIBUTION WIDTH CV 11.8 % (11.5-14.5); RED CELL DISTRIBUTION WIDTH SD 36.4 fL (36.4-46.3); WHITE BLOOD COUNT 1.75 K/uL (4.8-10.8)
[2018-01-11 08:17] LABS: CALCIUM 8.3 mg/dl (8.5-10.1); CREATININE 0.55 mg/dl (0.60-1.20); POTASSIUM 3.5 mmol/L (3.5-5.1)
[2018-01-11] MEDS: CIPROFLOXACIN 500 MG TAB PO SCH (09:04)
[2018-01-11] MEDS: HYDROXYCHLOROQUINE SULFATE 200 MG TAB PO SCH (09:04)
[2018-01-11] MEDS: METHYLPREDNISOLONE IV 40 MG in SYRINGE 0 ML IV SCH (09:04)
--- NOTE | 2018-01-11 09:06 | Hospitalist Progress Note ---
Hospitalist Progress Note Date of Service Jan 11, 2018. Subjective Pt evaluation today including: conversation w/ patient, physical exam, chart review, lab review, review of inpatient medication list Medications Current Inpatient Medications Medications (Trade) Dose Ordered Sig/Roland Route Start Time Stop Time Status Last Admin Dose Admin Ioversol (Optiray 320) 100 ml UD PRN IV 01/08/18 18:15 01/12/18 18:14 Acetaminophen (Tylenol Tab) 650 mg Q4H PRN PO 01/09/18 01:15 02/08/18 01:14 01/10/18 10:02 650 MG Al Hydrox/Mg Hydrox/Simethicone (Maalox Max Susp) 15 ml Q4H PRN PO 01/09/18 01:15 02/08/18 01:14 Magnesium Hydroxide (Milk Of Magnesia Susp) 30 ml Q6H PRN PO 01/09/18 01:15 02/08/18 01:14 Polyethylene (Miralax Powder Packet) 17 gm DAILY PRN PO 01/09/18 01:15 02/08/18 01:14 Ondansetron HCl (Zofran Inj) 4 mg Q6H PRN IV 01/09/18 01:15 02/08/18 01:14 Morphine Sulfate (MoRPHine SULFATE INJ) 1 mg Q2HWA PRN IV 01/09/18 01:15 01/23/18 01:14 Hydroxychloroquine Sulfate (Plaquenil Tab) 200 mg BID PO 01/09/18 09:00 02/08/18 08:59 01/10/18 21:21 200 MG Levothyroxine Sodium (Synthroid Tab) 112 mcg DAILYBB PO 01/09/18 06:00 02/08/18 05:59 01/11/18 06:07 112 MCG Miscellaneous (Iv Fluids Completed) 1 ea PRN PRN N/A 01/09/18 02:30 01/09/19 02:29 Gadobutrol (Gadavist) 6.8 mmol UD PRN IV 01/09/18 17:30 01/13/18 17:29 Sodium Chloride ([place] Nasal [place]) 1 sprays PRN PRN NA 01/10/18 08:30 02/09/18 08:29 01/10/18 08:51 1 SPRAYS Methylprednisolone Sodium Succinate 40 mg/Syringe 0.64 ml @ 1.5 mls/min Q24H IV 01/10/18 10:00 02/09/18 09:59 01/10/18 10:14 1.5 MLS/MIN Ciprofloxacin (Cipro Tab) 500 mg BID PO 01/10/18 21:00 01/15/18 20:59 01/10/18 21:21 500 MG Objective Vital Signs Date Time Temp Pulse Resp B/P (MAP) Pulse Ox O2 Delivery O2 Flow Rate FiO2 01/11/18 08:10 Room Air 01/11/18 07:51 36.8 61 18 124/80 (95) 97 Room Air 01/10/18 23:36 97 Room Air 01/10/18 22:56 37.2 58 16 126/76 (93) 97 Room Air 01/10/18 21:18 37.2 01/10/18 16:24 37.0 01/10/18 16:20 Room Air 01/10/18 14:51 37.1 76 18 138/80 (99) 98 Room Air Laboratory Results Last 24 Hours Test 01/11/18 07:26 White Blood Count 1.75 K/uL Red Blood Count 3.46 M/uL Hemoglobin 10.2 g/dL Hematocrit 29.2 % Mean Corpuscular Volume 84.4 fL Mean Corpuscular Hemoglobin 29.5 pg Mean Corpuscular Hemoglobin Concent 34.9 g/dl Platelet Count 136 K/uL Mean Platelet Volume 9.6 fL RDW Standard Deviation 36.4 fL RDW Coefficient of Variation 11.8 % Neutrophils % (Manual) 66.6 % Lymphocytes % (Manual) 28.1 % Monocytes % (Manual) 5.3 % Neutrophils # (Manual) 1.17 K/uL Total Absolute Neutrophils 1.17 K/uL Lymphocytes # (Manual) 0.49 K/uL Total Absolute Lymphocytes 0.49 K/uL Monocytes # (Manual) 0.09 K/uL Giant Platelets 1+ Ovalocytes 1+ Sodium Level 139 mmol/L Potassium Level 3.5 mmol/L Chloride Level 108 mmol/L Carbon Dioxide Level 23 mmol/L Anion Gap 8.0 mmol/L Blood Urea Nitrogen 7 mg/dl Creatinine 0.55 mg/dl Est Creatinine Clear Calc Drug Dose 108.9 ml/min Estimated GFR () 125.9 Estimated GFR (Non- 108.6 BUN/Creatinine Ratio 12.6 Random Glucose 87 mg/dl Calcium Level 8.3 mg/dl Assessment and Plan 52yo female with: FUO: SLE vs Viral Process vs Tick-Borne Illness vs Malignancy/Leukemic Process vs Other - Suspicion that SLE may be more likely - per Rheum note that these symptoms mimicked her symptoms prior to diagnosis - Afebrile > 24 hours - Reporting low levels of E. coli (60,000) in outpatient UA from PCP - cx reveals pansensitive and converted to Ciprofloxacin 500 mg BID Possible SLE Exacerbation: - Solu-Medrol 40 mg IV daily with plans for oral conversion on D/C - Plaquenil 200 mg BID - Rheum following - appreciate recommendations as above and will follow as outpatient Urinary Retention: Possible 2/2 UTI - MRI largely unremarkable to explain this; outpatient UCx suggests low levels of E. coli which may be the cause - Consult Urology - appreciate recommendations - plan for Abx x 14 days with continued Kidd x 5-7 days with outpatient TOV Persistent URI Symptoms with Cervical Lymphadenopathy: Possible Early Sinusitis - [place] screen negative Hypothyroidism: COMPENSATED - Synthroid 112 mcg daily Abnormal LFTs: RESOLVED Abnormal GB Imaging: - Gen Surg consulted - no plan for current surgical intervention - plan for outpatient F/U in 2 weeks - Continue low fat diet DVT Prophylaxis: SCDs Disposition: Home pending clinical improvement and diet tolerance Discharge planning: home
--- NOTE | 2018-01-11 12:29 | Progress Note ---
Subjective Date of Service: Jan 11, 2018. Subjective Pt evaluation today including: conversation w/ patient, chart review, lab review Voiding: heard catheter in place (patent, draining clear, yellow urine ) 52 yo female with UR. Heard draining clear, yellow urine this morning. Pt states she feels well. Continues to have leukopenia, but states this is chronic for her. She has been afebrile for >24hrs. UC&S is negative. Problem List Medical Problems: (1) Acute cholecystitis Status: Acute (2) Dehydration Status: Acute (3) Fever Status: Acute (4) Urinary retention Status: Acute Review of Systems Constitutional: No fever, No chills Respiratory: No shortness of breath Cardiac: No chest pain Abdomen: No pain, No nausea, No vomiting Female : No hematuria Heme: No abnormal bleeding/bruising Objective Vital Signs Date Time Temp Pulse Resp B/P (MAP) Pulse Ox O2 Delivery O2 Flow Rate FiO2 01/11/18 08:10 Room Air 01/11/18 07:51 36.8 61 18 124/80 (95) 97 Room Air 01/10/18 23:36 97 Room Air 01/10/18 22:56 37.2 58 16 126/76 (93) 97 Room Air 01/10/18 21:18 37.2 01/10/18 16:24 37.0 01/10/18 16:20 Room Air 01/10/18 14:51 37.1 76 18 138/80 (99) 98 Room Air Physical Exam General Appearance: no apparent distress Eyes: normal inspection ENT: hearing grossly normal Neck: no JVD Respiratory/Chest: no respiratory distress, no accessory muscle use Cardiovascular: no JVD Extremities: normal inspection Neurologic/Psychiatric: alert, normal mood/affect, oriented x 3 Skin: normal color Laboratory Results Last 24 Hours Test 01/11/18 07:26 White Blood Count 1.75 K/uL Red Blood Count 3.46 M/uL Hemoglobin 10.2 g/dL Hematocrit 29.2 % Mean Corpuscular Volume 84.4 fL Mean Corpuscular Hemoglobin 29.5 pg Mean Corpuscular Hemoglobin Concent 34.9 g/dl Platelet Count 136 K/uL Mean Platelet Volume 9.6 fL RDW Standard Deviation 36.4 fL RDW Coefficient of Variation 11.8 % Neutrophils % (Manual) 66.6 % Lymphocytes % (Manual) 28.1 % Monocytes % (Manual) 5.3 % Neutrophils # (Manual) 1.17 K/uL Total Absolute Neutrophils 1.17 K/uL Lymphocytes # (Manual) 0.49 K/uL Total Absolute Lymphocytes 0.49 K/uL Monocytes # (Manual) 0.09 K/uL Giant Platelets 1+ Ovalocytes 1+ Sodium Level 139 mmol/L Potassium Level 3.5 mmol/L Chloride Level 108 mmol/L Carbon Dioxide Level 23 mmol/L Anion Gap 8.0 mmol/L Blood Urea Nitrogen 7 mg/dl Creatinine 0.55 mg/dl Est Creatinine Clear Calc Drug Dose 108.9 ml/min Estimated GFR () 125.9 Estimated GFR (Non- 108.6 BUN/Creatinine Ratio 12.6 Random Glucose 87 mg/dl Calcium Level 8.3 mg/dl Assessment and Plan A/P: Urinary retention Plan for pt to be d/c'd home with heard catheter. Will plan for an outpatient trial of void later this week or early next week. Will arrange. Consider treating for UTI with abx based on outpatient UC&S with 5-7 days of oral abx. No further management at this time. Recall PRN issues. Thanks for allowing us to participate in this pt's care. Continued [facility] stay due to: multiple IV medications needed Discharge planning: home
[2018-01-11] MEDS ORDERED: PRED10TA PO (13:46)
[2018-01-11] MEDS ORDERED: CPR500 PO (13:46)
--- NOTE | 2018-01-11 13:51 | Discharge Instructions ---
Discharge Instructions Date of Service Jan 11, 2018. Admission Reason for Admission: Fever,Urinary Retention Discharge Discharge Diagnosis / Problem: Fever/Lupus Flair; UTI Discharge Goals Goal(s): Decrease discomfort, Improve function, Increase independence Activity Recommendations Activity Limitations: resume your previous activity . Instructions / Follow-Up Instructions / Follow-Up Lupus: - You will take Prednisone 40 mg daily until follow-up with Dr. Peña who will make further adjustments. You had steroids today so you can start this tomorrow 01/12 - Recommend to avoid sick people and large crowds to reduce your risk of getting sick - Continue Plaquenil as prescribed - Dr. Peña wants to see you on or Wednesday at either 8 AM or noon either day. Our case finishing machine adjuster will help set an appointment. Dr. Peña said she will let her imaging scheduler know that she can overbook to get you in as soon as possible. Urinary Retention:and UTI - The Kidd will remain in and you will see Urology as outpatient to do a trial of void - Continue Ciprofloxacin 500 mg twice a day until complete. You had a morning dose so take one dose tonight on 01/11 then resume twice a day on 01/12 Abnormal GB Imaging: - General Surgery consulted - no plan for current surgical intervention at this time - plan for outpatient follow-up in 2 weeks - Recommend to continue a low fat diet Follow-Up: "Please, follow up with Dr. Peña on WednesdayJanuary 14 at 9:00 am *This office is located in the [facility] Office at [address] in [place]. If you need to change this appointment, you can call the office at . Please, follow up at Dr. Ashanti Graham's office with her associate, Klaudia SAL, on WednesdayJanuary 17 at 1:50 pm. *If you need to change this appointment, you can call their office at [phone]." Current Hospital Diet Patient's current hospital diet: Low Fat Diet Discharge Diet Recommended Diet: Low Fat Diet Pending Studies Studies pending at discharge: yes List of pending studies: Complement and Immunological Studies Medical Emergencies . Who to Call and When: Medical Emergencies: If at any time you feel your situation is an emergency, please call 911 immediately. . Non-Emergent Contact Non-Emergency issues call your: Primary Care Provider Call Non-Emergent contact if: you have a fever, your pain is concerning you, you have any medication questions . . "Provider Documentation" section prepared by Ailyn Roque. . VTE Core Measure Inpt VTE Proph given/why not?: SCD's
[2018-01-11 15:29] VITALS: BP 124/80; PULSE 61; TEMP 36.8; O2SAT 97
--- NOTE | 2018-01-11 18:04 | Discharge Summary ---
Discharge Summary Date of Service Jan 11, 2018. Discharge Summary Admission Date: Jan 09, 2018 at 01:33 Discharge Date: Jan 11, 2018 Discharge Disposition: Home Principal Diagnosis: Lupus Exacerbation; Urinary Retention from UTI Problems/Secondary Diagnoses: 1. SLE 2. Hypothyroidism S/P Thyroidectomy Immunizations: Have You Had Influenza Vaccine: Yes Influenza Vaccine Date: Oct 15, 2005 History of Tetanus Vaccine?: unsure of date History of Pneumococcal: No History of Hepatitis B Vaccine: No Procedures: GALLBLADDER-ABD LIMITED FINDINGS: Pancreas: Visualized portions of the pancreatic head and body normal. Liver: Normal echogenicity and echotexture. Relative hyperechogenicity in the left hepatic lobe may indicate heterogeneous fatty deposition. The liver measures 14.2 cm in maximal sagittal dimension. No sonographic evidence of hepatic mass. Main portal vein patent with normal directional flow. Biliary: No intrahepatic biliary ductal dilatation. Common bile duct measures up to 5 mm in diameter. Gallbladder: Minimal sludge may be present. No evidence of gallstones. Mild gallbladder wall thickening, nonspecific. Sonographic Thomason's sign negative. Right kidney: Normal in appearance. No hydronephrosis. Ascites: None. IMPRESSION: Minimal gallbladder sludge. No cholelithiasis. Nonspecific mild gallbladder wall thickening. Findings are not suggestive of acute cholecystitis. If there is clinical concern for this diagnosis, nuclear medicine HIDA scan could be obtained. ABD/PELVIS IV CONTRAST ONLY FINDINGS: Insole And Outsole Preparer topogram: Unremarkable. Lung bases: Minimal basilar opacities, likely atelectasis. Normal heart size. No pericardial or pleural effusion. Liver: Normal morphology. No liver lesion. Patent hepatic vasculature. Biliary: No intrahepatic or extrahepatic biliary ductal dilatation. Mild gallbladder wall thickening. The gallbladder is not significantly distended. No pericholecystic inflammatory change. Pancreas: Normal. Spleen: Numerous splenic parenchymal calcification suggest prior granulomatous infection. Adrenal glands: Normal. Kidneys and ureters: Normal. No hydronephrosis. Bladder: Decompressed with a Kidd catheter. Pelvic organs: Uterus and ovaries normal. Bowel: Normal. No bowel obstruction. Peritoneal cavity: No free fluid or intraperitoneal gas. Lymph nodes: No enlarged lymph nodes in the abdomen or pelvis. Vasculature: Aorta and IVC patent and normal in caliber. Abdominal wall: Normal. Musculoskeletal: Normal. IMPRESSION: 1. Gallbladder wall thickening, nonspecific. There is clinical concern for cholecystitis, ultrasound should be obtained. 2. Bladder decompressed with a Kidd catheter. LUMBAR SPINE COMBINATION FINDINGS: For the purpose of the report the L5-S1 disc space will be located on axial image 27 of 30. Moderate degenerative disc change L5-S1. No significant bone marrow replacing process. Sagittal postcontrast images suggest a trace amount of meningeal enhancement based on the sagittal images as well as is not duplicated on the transaxial images. Possibly of artifact is considered. No specific cord enhancement. L1-L2: No significant central canal or neural foraminal narrowing. L2-L3: No significant central canal or neural foraminal narrowing. L3-L4: No significant central canal or neural foraminal narrowing. L4-L5: No significant central canal or neural foraminal narrowing. L5-S1: Minimal broad-based disc bulge. Minimal narrowing left neural foramina. IMPRESSION: 1. Minimal broad-based disc bulge L5-S1. 2. Minimal narrowing left neural foramina. 3. Otherwise negative MRI lumbar spine. Consultations: 1. General Surgery 2. Rheumatology 3. Urology Medication Reconciliation New Medications: Prednisone (Prednisone) 10 Mg Tab 40 MG PO DAILY for 14 Days, #56 TAB Start on 01/12. Ciprofloxacin (Ciprofloxacin HCl) 500 Mg Tab 500 MG PO BID, #21 TAB Take one tablet on 01/11 then resume twice a day on 01/12 Continued Medications: Hydroxychloroquine Sulfate (Plaquenil) 200 Mg Tab 200 MG PO BID, TAB Levothyroxine Sodium (Levothyroxine Sodium) 112 Mcg Tab 112 MCG PO DAILY, TAB Discharge Exam ROS: General/Constitutional: Denies fever/chills, fatigue, weakness ENT: + nasal drainage; Denies visual changes, hearing loss, sore throat, trouble swallowing Cardiovascular: Denies chest pain, palpitations, edema Respiratory: Denies cough, sputum, SOB, wheezing, orthopnea GI: Denies nausea, vomiting, abdominal pain, constipation, diarrhea, melena/ hematochezia : Denies dysuria Musculoskeletal: Denies joint/muscle aches Neurologic: Denies dizziness/lightheadedness Hematologic/Lymphatic: Denies bleeding/clotting abnormalities Skin: Denies rash PHYSICAL EXAM: General Appearance: WDWN in NAD who is A&O x 3 HEENT: Head is normocephalic/atraumatic; Hearing grossly intact; Mucous membranes moist; Pharynx negative for exudate/lesions Neck: Supple; Trachea midline; Neg JVD Heart: RRR with no M/G/R Lungs: CTA in all lung bell bilaterally; Respirations unlabored; Neg accessory muscle use Abdomen: Soft, non-tender, non-distended; Positive BS x 4 quadrants Extremities: Neg cyanosis or edema Neurological: Speech clear; Neg focal neurologic deficits Psychiatric: Appropriate mood/affect Skin: Normal Color; Warm/Dry Hospital Course ADMISSION: Patient is a 52 year old female with a PMH of lupus and hypothyroidism who presented to the ED as she has been unable to urinate. Her difficulty with urination started yesterday where she said she had to bare down very hard to urinate that she even gave herself a hemorrhoid. Today she was unable to urinate at all and therefore she came to the ED. She says she feels that there is something blocking her urethra. She has never had this happen to her before. She denies any dysuria, hematuria, or new medications. She denies any vaginal bleeding. She also notes that for the past two weeks she has had fevers, vomiting and chills with a decreased appetite. She has measured her temperature at home and it has been 100-102 and she has taken tylenol to subside this. She did have diarrhea 10 days ago but this has now subsided. She denies any abdominal pain, dysuria,. HOSPITAL COURSE: Ms. Moreno was admitted for suspected SLE exacerbation and urinary retention from pansensitive E. coli UTI. Patient was initiated on steroids which seemed to help her symptoms and per Rheum, her presentation was similar to her symptoms prior to diagnosis of SLE. She will be continued on Prednisone 40 mg daily with close F/U with Dr. Peña for further taper. Complement and viral titers pending. Outpatient UCx reveals pansensitive E. coli UTI and will complete a total of 14 days antibiotics. She was D/C'd on Ciprofloxacin 500 mg BID. She will maintain her Kidd with outpatient Urology appointment for TOV. She does have mild gallbladder wall thickening and sludge with recommendations from surgery to have outpatient F/U for monitoring and recommending to maintain low fat diet. Total Time Spent: Greater than 30 minutes This includes examination of the patient, discharge planning, medication reconciliation, and communication with other providers. Discharge Instructions Please refer to the electronic Patient Visit Report (Discharge Instructions) for additional information. Additional Copies To Ashanti Graham D.O.
[2018-01-13 00:31] LABS: ANTI-dsDNA RECOMBINANT 255X 30 IU/ML; COMPLEMENT C3 TC 44859W 55 MG/DL (90-180); COMPLEMENT C4 TC 44982E 18 MG/DL (16-47); PARVOVIRUS IgM INDEX 0.1 (<0.9)
== END 2018-01-11 16:21 | disposition home or self-care (01) | DRG 546 ==
LOC: C.EDB 17:50 → C.MSW 01-09 01:33 → ENRESERV 01-09 01:48
PROVIDERS: ADMIT Hospitalist; ATTEND Internal Medicine
DX: M32.9 Systemic lupus erythematosus, unspecified (principal); E87.1 Hypo-osmolality and hyponatremia; N39.0 Urinary tract infection, site not specified; D61.818 Other pancytopenia; B96.20 Unspecified Escherichia coli [E. coli] as the cause of diseases classified elsewhere; R33.9 Retention of urine, unspecified; K83.9 Disease of biliary tract, unspecified; J01.90 Acute sinusitis, unspecified; R94.5 Abnormal results of liver function studies; K59.00 Constipation, unspecified; E89.0 Postprocedural hypothyroidism; E86.0 Dehydration; Z79.899 Other long term (current) drug therapy; Z88.0 Allergy status to penicillin

== ENCOUNTER → 2018-02-18 | Outpatient (CLI) | payer OTHER ==
[~2018-02-18] MED LIST changes: -ANT25 PO; -ATV5 SL; -BCPILLS PO; +CPR500 PO; -ERYOPO OP; +HYDR200T5 PO; -LEVO100T84 PO; +LEVO112T4 PO; -MULT-506 PO
--- NOTE | 2018-02-21 12:41 | MAMMOGRAPHY REPORT ---
BILATERAL DIGITAL SCREENING MAMMOGRAM TOMOSYNTHESIS WITH CAD: 02/18/2018 CLINICAL HISTORY: Routine screening. Patient has no complaints. TECHNIQUE: Breast tomosynthesis in addition to standard 2D mammography was performed. Current study was also evaluated with a Computer Aided Detection (CAD) system. COMPARISON: Comparison is made to exams dated: 02/16/2017 mammogram, 02/14/2016 mammogram, 02/12/2015 m ammogram, 02/08/2014 mammogram, 02/03/2013 mammogram, and 01/27/2012 mammogram - [facility] nter. BREAST COMPOSITION: There are scattered areas of fibroglandular density in both breasts. FINDINGS: No suspicious masses, calcifications, or areas of architectural distortion are noted in ei ther breast. There has been no significant interval change compared to prior exams. IMPRESSION: ACR BI-RADS CATEGORY 1: NEGATIVE There is no mammographic evidence of malignancy. A 1 year screening mammogram is recommended. The pa tient will receive written notification of the results. Approximately 10% of breast cancers are not detected with mammography. A negative mammographic report should not delay biopsy if a clinically suggestive mass is present. Evy Esquivel M.D. ah/:02/18/2018 08:27:42 Applied Psychology Teacher: Suly JARAMILLO(R)(M), [facility] letter sent: Normal 1/2 BI-RADS Code: ACR BI-RADS Category 1: Negative
== END | disposition home or self-care (01) ==
LOC: C.MAMM 07:33
PROVIDERS: ATTEND Obstetrics & Gynecology
DX: Z12.31 Encounter for screening mammogram for malignant neoplasm of breast (principal)

== ENCOUNTER → 2018-02-22 | Outpatient (CLI) | payer OTHER ==
--- NOTE | 2018-02-22 14:34 | DIAGNOSTIC IMAGING REPORT ---
RENAL ULTRASOUND CLINICAL HISTORY: Urinary tract infection. Urinary retention. Dysuria. COMPARISON STUDY: CT of the abdomen and pelvis January 08, 2018. TECHNIQUE: Sonography of the kidneys and the urinary bladder was performed. FINDINGS: The right kidney measures 10.6 cm in maximal dimension and the left measures 10.8 cm. There is no hydronephrosis. No renal mass or calculus is identified. Renal echogenicity, size and cortical thickness is normal. Both ureteral jets were identified. IMPRESSION: Normal renal ultrasound. Electronically signed by: Pascual Arteaga M.D. 02/22/2018 2:33 PM Dictated Date/Time: 02/22/2018 2:32 PM
== END | disposition home or self-care (01) ==
LOC: C.ULTR 13:50
PROVIDERS: ATTEND Urology
DX: N39.0 Urinary tract infection, site not specified (principal); R30.0 Dysuria; R33.9 Retention of urine, unspecified

== ENCOUNTER → 2018-03-03 | Outpatient (CLI) | payer OTHER ==
[2018-03-03 17:08] LABS: EOS % 0.5 %; EOS ABS # 0.01 K/uL (0-0.5); HEMATOCRIT 32.1 % (37-47); HEMOGLOBIN 11.1 g/dL (12.0-16.0); LYMPH % 23.5 %; LYMPH ABS # 0.46 K/uL (1.2-3.4); MEAN CELL VOLUME 85.8 fL (80-100); MEAN CORPUSCULAR HEMOGLOBIN 29.7 pg (25-34); MEAN CORPUSCULAR HGB CONC 34.6 g/dl (32-36); MEAN PLATELET VOLUME 9.3 fL (7.4-10.4); MONO % 9.2 %; MONO ABS # 0.18 K/uL (0.11-0.59); NEUT % 66.8 %; NEUT ABS # 1.31 K/uL (1.4-6.5); PLATELET COUNT 188 K/uL (130-400); RED CELL DISTRIBUTION WIDTH CV 12.9 % (11.5-14.5); RED CELL DISTRIBUTION WIDTH SD 40.9 fL (36.4-46.3); WHITE BLOOD COUNT 1.96 K/uL (4.8-10.8)
[2018-03-03 17:18] LABS: ALBUMIN 3.1 gm/dl (3.4-5.0); ALT/SGPT 51 U/L (12-78); CREATININE 0.76 mg/dl (0.60-1.20)
[2018-03-03 17:21] LABS: ALKALINE PHOSPHATASE 54 U/L (45-117); AST/SGOT 56 U/L (15-37)
[2018-03-03 18:05] LABS: HEP C IGG 13 YRS+OLDER_RFLX NEG (NEG)
[2018-03-07 09:06] LABS: QUANTIF MITOGEN-NIL 1.83 IU/ML; QUANTIFERON NEGATIVE (NEGATIVE); QUANTIFERON NIL 0.04 IU/ML
[2018-03-07 12:45] LABS: ANTI-dsDNA RECOMBINANT 255X 36 IU/ML; COMPLEMENT C3 TC 44859W 66 MG/DL (90-180); COMPLEMENT C4 TC 44982E 18 MG/DL (16-47); HEPATITIS B CORE IGM TC51854R NON-REACTIVE (NON-REACTIVE)
== END | disposition home or self-care (01) ==
LOC: C.LABBC 14:27
PROVIDERS: ATTEND Internal Medicine
DX: M32.9 Systemic lupus erythematosus, unspecified (principal); Z79.899 Other long term (current) drug therapy